=== PATIENT | female | born 1975 | race Caucasian/White ===

== ENCOUNTER 2017-08-14 20:22 | Emergency (ER) | payer MEDICARE, OTHER ==
--- NOTE | 2017-08-14 22:02 | RAD ---
HISTORY: Cough COMPARISONS: November 11, 2005 VIEWS: 5: Frontal dual-energy and lateral views of the chest. FINDINGS: CARDIOMEDIASTINAL SILHOUETTE: The cardiomediastinal silhouette is normal. FREDY: The fredy are normal. PLEURA: The costophrenic angles are sharp. No pleural abnormalities are noted. LUNG PARENCHYMA: The lungs are clear. ABDOMEN: The upper abdomen is clear. There is no subphrenic gas. BONES AND SOFT TISSUES: No bone or soft tissue abnormalities are noted. OTHER: None. IMPRESSION: NO ACTIVE CARDIOPULMONARY DISEASE.
--- NOTE | 2017-08-14 22:03 | RAD ---
HISTORY: Swelling of joints and fingers, immobility of hands COMPARISONS: September 10, 2009 VIEWS: 8, Frontal, lateral, and oblique views of the left hand and of the right hand FINDINGS: Right: BONE DENSITY: Normal. BONES: There is no displaced fracture. There is no appreciable erosion or periosteal reaction. 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 ALIGNMENT: There is no dislocation. The alignment is anatomic. SOFT TISSUES: Unremarkable. Left: BONE DENSITY: Normal. BONES: There is no displaced fracture. There is no appreciable erosion or periosteal reaction. JOINTS: There is no arthropathy. ALIGNMENT: There is no dislocation. The alignment is anatomic. SOFT TISSUES: Unremarkable. OTHER FINDINGS: None. IMPRESSION: NO ACUTE OSSEOUS INJURY BILATERALLY. NO APPRECIABLE EROSION OR PERIOSTEAL REACTION. IF SYMPTOMS PERSIST, RECOMMEND REPEAT IMAGING.
[2017-08-14 22:15] LABS: ABS Basophils 0.1 10^3/ul (0-0.2); ABS Eosinophils 0.1 10^3/ul (0-0.6); ABS Lymphocytes 2.3 10^3/ul (1.0-4.8); ABS Monocytes 0.6 10^3/ul (0-0.8); ABS Nucleated RBC 0 10^3/ul; Eosinophil % 1.5 % (0-6); Hematocrit 42 % (35-47); Hemoglobin 14.4 g/dl (12.0-16.0); Lymphocyte % 28.6 % (25-47); Mean Corpuscular HGB Conc 34 g/dl (31-36); Mean Corpuscular Hemoglobin 31 pg (27-31); Mean Corpuscular Volume 91 fL (80-97); Mean Platelet Volume 7.3 um3 (7.4-10.4); Nucleated Red Blood Cells % 0.1; Platelet Count 217 10^3/ul (150-450); Red Blood Count 4.59 10^6/ul (4.0-5.4); Red Cell Distribution Width 15 % (10.5-15); White Blood Count 8.2 10^3/ul (3.5-10.8)
[2017-08-14 22:34] LABS: EGFR Non-African American 76.1 (>60)
[2017-08-14] MEDS ORDERED: Potassium Chlor TAB* 20 MEQ TAB.ER PO ONE (23:21)
[2017-08-14] MEDS ORDERED: predniSONE TAB* 20 MG PO ONE (23:22)
[2017-08-14 23:55] VITALS: BP 132/87
--- NOTE | 2017-08-15 00:10 | ED ---
Kathy Chester Julia, scribed for Juan Fletcher MD on 08/14/17 at 2104 . Upper Extremity Pain - HPI Summary HPI Summary: This patient is a 42 year old F presenting to [facility] accompanied by her mother with a chief complaint of sudden pain, stiffness, and swelling in her bilateral hands this morning. She has had these symptoms intermittently for the past year , but have significantly worsened today. Patient reports issues with extremity edema at baseline, for which she takes Lasix. She reports previous hypokalemia. She additionally c/o cough, mild wheezing, and sore throat. Patient denies CP. PMHx includes migraines, HTN, depression, anxiety, and opiod addiction. She is currently taking Suboxone. - History of Current Complaint Chief Complaint: EDHypertension Stated Complaint: IMMOBILITY OF HANDS Time Seen by Provider: 08/14/17 20:57 - Allergies/Home Medications Allergies/Adverse Reactions: Allergies Allergy/AdvReac Type Severity Reaction Status Date / Time cephalexin [From Keflex] AdvReac Hives Verified 08/14/17 20:34 Sulfa (Sulfonamide AdvReac Hives Verified 08/14/17 20:34 Antibiotics) Home Medications: Home Medications Buprenorphine/Naloxone SL TAB* [Suboxone 8-2 mg SL TAB*] 8 mg ONE NARE BID 08/14 [History Confirmed 08/14/17] Buspar TAB * 10 mg PO TID 08/14/17 [History Confirmed 08/14/17] Docusate Sodium 300 mg PO DAILY 08/14/17 [History Confirmed 08/14/17] Tiffany 0.35 mg PO QAM 08/14/17 [History Confirmed 08/14/17] Escitalopram Oxalate [Lexapro 10 mg] 15 mg PO DAILY 08/14/17 [History Confirmed 08/14/17] Lasix TAB* 80 mg PO QAM 08/14/17 [History Confirmed 08/14/17] Omeprazole 40 mg PO QAM 08/14/17 [History Confirmed 08/14/17] Prazosin HCl 1 mg PO DAILY 08/14/17 [History Confirmed 08/14/17] Pregabalin [Lyrica] 50 cap PO TID 08/14/17 [History Confirmed 08/14/17] Propranolol HCl ER 180 mg PO QAM 08/14/17 [History Confirmed 08/14/17] Remeron TAB* 7.5 mg PO DAILY 08/14/17 [History Confirmed 08/14/17] Seroquel 100 MG * 100 mg .ROUTE QAM 08/14/17 [History Confirmed 08/14/17] Seroquel 300 MG TAB* 600 mg PO BEDTIME 08/14/17 [History Confirmed 08/14/17] PMH/Surg Hx/FS Hx/Imm Hx Infectious Disease History: No Infectious Disease History: Denies: Traveled Outside the [place] in Last 30 Days - Family History Known Family History: Positive: Other - RA - grandmother - Social History Alcohol Use: None Substance Use Type: Reports: None Smoking Status (MU): Heavy Every Day Tobacco Smoker Review of Systems Positive: Sore Throat Negative: Chest Pain Positive: Cough Positive: Edema - bilateral upper extremity Positive: Other - erythema bilateral upper extremity All Other Systems Reviewed And Are Negative: Yes Physical Exam - Summary Physical Exam Summary: Appearance: Well-appearing, Well-nourished, lying in bed comfortably Skin: Warm, dry, no obvious rash, erythema of bilateral hands and forearms Eyes: sclera anicteric, no conjunctiva pallor ENT: mucous membranes moist, pharynx appears normal Neck: Supple, nontender Respiratory: Clear to auscultation, no signs of respiratory distress Cardiovascular: Normal S1, S2. No murmurs. Normal distal pulses in tibial and radial bilaterally. Abdomen: Soft, nontender, normal active bowel sounds present Musculoskeletal: Strength/ROM Intact swelling of the bilateral hands and wrists Neurological: A&Ox3, awake and alert, mentation is normal, speech is fluent and appropriate Psychiatric: affect is normal, does not appear anxious or depressed Triage Information Reviewed: Yes Vital Signs On Initial Exam: Initial Vitals Temp Pulse Resp BP Pulse Ox 96.0 F 83 20 142/111 92 08/14/17 20:28 08/14/17 20:28 08/14/17 20:28 08/14/17 20:28 08/14/17 20:28 Vital Signs Reviewed: Yes Diagnostics - Vital Signs Vital Signs Temp Pulse Resp BP Pulse Ox 08/14/17 20:28 96.0 F 83 20 142/111 92 - Laboratory Lab Results: Lab Results 08/14/17 08/14/17 Range/Units 21:59 21:59 WBC 8.2 (3.5-10.8) 10^3/ul RBC 4.59 (4.0-5.4) 10^6/ul Hgb 14.4 (12.0-16.0) g/dl Hct 42 (35-47) % MCV 91 (80-97) fL MCH 31 (27-31) pg MCHC 34 (31-36) g/dl RDW 15 (10.5-15) % Plt Count 217 (150-450) 10^3/ul MPV 7.3 L (7.4-10.4) um3 Neut % (Auto) 61.3 (38-83) % Lymph % (Auto) 28.6 (25-47) % [place] % (Auto) 7.7 H (0-7) % Eos % (Auto) 1.5 (0-6) % Baso % (Auto) 0.9 (0-2) % Absolute Neuts (auto) 5.0 (1.5-7.7) 10^3/ul Absolute Lymphs (auto) 2.3 (1.0-4.8) 10^3/ul Absolute Monos (auto) 0.6 (0-0.8) 10^3/ul Absolute Eos (auto) 0.1 (0-0.6) 10^3/ul Absolute Basos (auto) 0.1 (0-0.2) 10^3/ul Absolute Nucleated RBC 0 10^3/ul Nucleated RBC % 0.1 ESR 18 H (0-14) mm/Hr Sodium 137 L (139-145) mmol/L Potassium 2.9 L (3.5-5.0) mmol/L Chloride 95 L (101-111) mmol/L Carbon Dioxide 33 H (22-32) mmol/L Anion Gap 9 (2-11) mmol/L BUN 8 (6-24) mg/dL Creatinine 0.83 (0.51-0.95) mg/dL Est GFR ( Amer) 97.9 (>60) Est GFR (Non-Af Amer) 76.1 (>60) BUN/Creatinine Ratio 9.6 (8-20) Glucose 86 (70-100) mg/dL Calcium 8.4 L (8.6-10.3) mg/dL Total Bilirubin 0.60 (0.2-1.0) mg/dL AST 17 (13-39) U/L ALT 11 (7-52) U/L Alkaline Phosphatase 110 H (34-104) U/L C-Reactive Protein 17.16 H (< 5.00) mg/L Total Protein 6.7 (6.4-8.9) g/dL Albumin 3.8 (3.2-5.2) g/dL Globulin 2.9 (2-4) g/dL Albumin/Globulin Ratio 1.3 (1-3) Rheumatoid Factor < 10 (<15) IU/mL Result Diagrams: 08/14/17 21:59 08/14/17 21:59 Lab Statement: Any lab studies that have been ordered have been reviewed, and results considered in the medical decision making process. - Radiology CXR Radiology Interpretation Completed By: Radiologist - NO ACTIVE CARDIOPULMONARY DISEASE. Dr. Fletcher has reviewed this report. Hand XR Radiology Interpretation Completed By: Radiologist - NO ACUTE OSSEOUS INJURY BILATERALLY. NO APPRECIABLE EROSION OR PERIOSTEAL REACTION. IF SYMPTOMS PERSIST , RECOMMEND REPEAT IMAGING. Dr. Fletcher has reviewed this report. - EKG 2117 Cardiac Rate: NL EKG Rhythm: Sinus Rhythm - at 77 BPM EKG Interpretation: see comparison EKG Comparison: Other - P waves, QRS complex, and T waves are within normal limits, T waves and intervals are normal, no ischemic changes. This is a normal EKG Course/Dx - Course Assessment/Plan: 42 y/o woman with acutely inflamed fingers, symmetric polyarthritis of the fingers. She has had similar problems before. I am concerned she has some type of underlying rheumatologic condition such as RA. Initial screening studies are unremarkable. I am going to try a short course of prednisone, and have asked her to see a leather goods ii assembler for further evaluation. - Diagnoses Differential Diagnosis/HQI/PQRI: Positive: Other - rheumatoid arthritis, viral arthropathy Provider Diagnoses: Polyarthritis Discharge - Sign-Out/Discharge Documenting (check all that apply): Discharge/Admit/Transfer - Discharge Plan Condition: Good Disposition: HOME Prescriptions: predniSONE TAB* [Deltasone TAB*] 40 mg PO DAILY #10 tab Patient Education Materials: Rheumatoid Arthritis (ED) Referrals: No Primary Care Phys,NOPCP [Primary Care Provider] - Additional Instructions: I am not sure what is causing your problem, but have prescribed prednisone which I think may help. Ask your doctor about a referral to a leather goods ii assembler, who would be able to evaluate you and start treatment if something like rheumatoid arthritis is the problem. - Billing Disposition and Condition Condition: GOOD Disposition: HOME The documentation as recorded by the Kathy garcia Julia accurately reflects the service I personally performed and the decisions made by me, Juan Fletcher MD.
== END 2017-08-14 23:52 | disposition home or self-care (01) ==
LOC: ED 20:22
DX: M13.0 Polyarthritis, unspecified (principal); Z72.0 Tobacco use; I10 Essential (primary) hypertension; F32.9 Major depressive disorder, single episode, unspecified; F11.20 Opioid dependence, uncomplicated; R05 Cough
CPT/HCPCS: 36415; 71046; 80053; 85025; 85652; 86140; 86431; 93005; 99283; A9270-GY; J7512

== ENCOUNTER 2019-02-22 22:59 | Emergency (ER) | payer MEDICARE, MEDICAID ==
[2019-02-22 23:51] LABS: ABS Eosinophils 0.2 10^3/ul (0-0.6); ABS Lymphocytes 3.2 10^3/ul (1.0-4.8); ABS Monocytes 0.5 10^3/ul (0-0.8); Eosinophil % 3.3 %; Hematocrit 42 % (35-47); Hemoglobin 14.5 g/dL (12.0-16.0); Lymphocyte % 46.6 %; Mean Corpuscular HGB Conc 34 g/dL (31-36); Mean Corpuscular Hemoglobin 32 pg (27-31); Mean Corpuscular Volume 93 fL (80-97); Mean Platelet Volume 7.3 fL (7.4-10.4); Nucleated Red Blood Cells % 0.2; Platelet Count 208 10^3/uL (150-450); Red Blood Count 4.52 10^6 /uL (3.70-4.87); Red Cell Distribution Width 13 % (10-15); White Blood Count 6.9 10^3/uL (3.5-10.8)
[2019-02-22 23:53] LABS: Urine Appearance Clear; Urine Bilirubin Negative (Negative); Urine Blood 2+ (Negative); Urine Color Yellow; Urine Glucose Negative (Negative); Urine Ketones Negative (Negative); Urine Nitrite Negative (Negative); Urine Protein Negative (Negative); Urine Specific Gravity 1.012 (1.010-1.030); Urine Urobilinogen Negative (Negative)
[2019-02-22 23:54] LABS: Urine Bacteria Absent (Absent); Urine Red Blood Cell Trace(0-2/hpf) (Absent); Urine Squamous Epithelial Cell Present (Absent); Urine White Blood Cell Trace(0-5/hpf) (Absent)
[2019-02-23 00:07] LABS: ALT 18 U/L (7-52); AST 16 U/L (13-39); Albumin 3.9 g/dL (3.2-5.2); Albumin/Globulin Ratio 1.6 (1-3); Alkaline Phosphatase 120 U/L (34-104); Anion Gap 10 mmol/L (2-11); Blood Urea Nitrogen 12 mg/dL (6-24); CO2 Carbon Dioxide 25 mmol/L (22-32); Calcium 9.1 mg/dL (8.6-10.3); Chloride 105 mmol/L (101-111); EGFR Non-African American 72.7 (>60); Globulin 2.4 g/dL (2-4); Glucose 97 mg/dL (70-100); Potassium 3.8 mmol/L (3.5-5.0); Sodium 140 mmol/L (135-145); Total Protein 6.3 g/dL (6.4-8.9)
[2019-02-23 00:15] LABS: HCG Pregnancy < 0.60 mIU/mL
[2019-02-23 00:17] LABS: Urine Benzodiazepine Screen Presumptive Positive (None Detect); Urine Opiates Screen None Detected (None Detect)
--- NOTE | 2019-02-23 00:17 | ED ---
Psychiatric Complaint - HPI Summary HPI Summary: Patient is a 43 y/o F presenting to [facility] with complaints of depression and SI. She states that she has been having SI for the past few days. Patient cites the current holiday season as an aggravating factor. She had threatened suicide to her friend mann and the friend called state troopers to check on her. Patient was subsequently brought to ED for evaluation. Patient denies current plan of SI but states that she has previously attempted to OD on medications years ago. Patient denies recent changes to her medications and states that she is receiving counseling. Patient also states that she has VU and is nauseous. PMHx of migraines, HTN, kidney disease, and GERD is noted. She claims that she consumed two large cans of beer mann and notes that she has been in and out of rehab for alcohol for the past few years. She additionally makes note of Hx of opiates abuse but states that she has been clean after having been on suboxone. No PSHx is noted. Home medications and allergies are reviewed. - History Of Current Complaint Chief Complaint: EDMentalHealth Time Seen by Provider: 02/22/19 23:15 Hx Obtained From: Patient Onset/Duration: Lasting Days, Still Present Timing: Constant Character: Depressed Aggravating Factor(s): Other - holiday season Has Suicidal: Reports: Thoughts, Has Prior Attempt(s). Denies: With A Plan - Allergies/Home Medications Allergies/Adverse Reactions: Allergies Allergy/AdvReac Type Severity Reaction Status Date / Time cephalexin [From Keflex] AdvReac Hives Verified 02/22/19 23:03 Sulfa (Sulfonamide AdvReac Hives Verified 02/22/19 23:03 Antibiotics) Home Medications: Home Medications cloNIDine TAB* [Catapres 0.1 MG TAB*] 0.1 mg PO TID PRN 02/23/19 [History Confirmed 02/23/19] diphenhydrAMINE HCl [Benadryl Allergy] 50 mg PO DAILY PRN 02/23/19 [History Confirmed 02/23/19] PMH/Surg Hx/FS Hx/Imm Hx Cardiovascular History: Reports: Hx Hypertension GI History: Reports: Hx Gastroesophageal Reflux Disease Neurological History: Reports: Hx Migraine Psychiatric History: Reports: Hx Suicide Attempt Infectious Disease History: No Infectious Disease History: Denies: Traveled Outside the [place] in Last 30 Days - Family History Known Family History: Positive: Other - RA - grandmother - Social History Alcohol Use: Daily Substance Use Type: Reports: None Smoking Status (MU): Heavy Every Day Tobacco Smoker Review of Systems Positive: Nausea Positive: Headache Psychological: Other - positive - SI All Other Systems Reviewed And Are Negative: Yes Physical Exam - Summary Physical Exam Summary: General: Well-developed, Obese female. No acute distress. HEENT: Normocephalic, Atraumatic. Eyes: Conjuctiva normal, PERRL. Ears: TMs within normal limits. Nares: (-) discharge, (-) erythema. Oropharynx: Clear, mucous membranes moist, (-) exudates. Neck: Soft, FROM, (-) lymphadenopathy, (-) thyromegaly, (-) JVD. Cardiovascular: Normal sinus rhythm, (-) murmur. Lungs: Clear to auscultation bilaterally (-) wheezes, (-) rales, (-) rhonchi. Abdomen: Soft, non-tender, non-distended, (-) organomegaly, normal bowel sounds. Back: (-) CVA tenderness Extremities: No edema. Skin: Warm, dry, (-) rash. Neuro: Alert and oriented x3, no focal deficits. Psychiatric: Sad affect, patient is slow to respond. Triage Information Reviewed: Yes Vital Signs On Initial Exam: Initial Vitals Temp Pulse Resp BP Pulse Ox 96.3 F 82 18 162/104 98 02/22/19 23:03 02/22/19 23:03 02/22/19 23:03 02/22/19 23:03 02/22/19 23:03 Vital Signs Reviewed: Yes Procedures - Sedation Patient Received Moderate/Deep Sedation with Procedure: No Diagnostics - Vital Signs Vital Signs Temp Pulse Resp BP Pulse Ox 02/22/19 23:03 96.3 F 82 18 162/104 98 - Laboratory Lab Results: Lab Results 02/22/19 02/22/19 02/22/19 Range/Units 23:20 23:43 23:43 WBC 6.9 (3.5-10.8) 10^3/uL RBC 4.52 (3.70-4.87) 10^6 /uL Hgb 14.5 (12.0-16.0) g/dL Hct 42 (35-47) % MCV 93 (80-97) fL MCH 32 H (27-31) pg MCHC 34 (31-36) g/dL RDW 13 (10-15) % Plt Count 208 (150-450) 10^3/uL MPV 7.3 L (7.4-10.4) fL Neut % (Auto) 43.1 % Lymph % (Auto) 46.6 % [place] % (Auto) 6.8 % Eos % (Auto) 3.3 % Baso % (Auto) 0.2 % Absolute Neuts (auto) 3.0 (1.5-7.7) 10^3/ul Absolute Lymphs (auto) 3.2 (1.0-4.8) 10^3/ul Absolute Monos (auto) 0.5 (0-0.8) 10^3/ul Absolute Eos (auto) 0.2 (0-0.6) 10^3/ul Absolute Basos (auto) 0.0 (0-0.2) 10^3/ul Absolute Nucleated RBC 0.0 10^3/ul Nucleated RBC % 0.2 Sodium 140 (135-145) mmol/L Potassium 3.8 (3.5-5.0) mmol/L Chloride 105 (101-111) mmol/L Carbon Dioxide 25 (22-32) mmol/L Anion Gap 10 (2-11) mmol/L BUN 12 (6-24) mg/dL Creatinine 0.86 (0.51-0.95) mg/dL Est GFR ( Amer) 88.0 (>60) Est GFR (Non-Af Amer) 72.7 (>60) BUN/Creatinine Ratio 14.0 (8-20) Glucose 97 (70-100) mg/dL Calcium 9.1 (8.6-10.3) mg/dL Total Bilirubin 0.30 (0.2-1.0) mg/dL AST 16 (13-39) U/L ALT 18 (7-52) U/L Alkaline Phosphatase 120 H (34-104) U/L Total Protein 6.3 L (6.4-8.9) g/dL Albumin 3.9 (3.2-5.2) g/dL Globulin 2.4 (2-4) g/dL Albumin/Globulin Ratio 1.6 (1-3) TSH Pending Beta HCG, Quant Pending Urine Color Yellow Urine Appearance Clear Urine pH 5.0 (5-9) Ur Specific [place] 1.012 (1.010-1.030) Urine Protein Negative (Negative) Urine Ketones Negative (Negative) Urine Blood 2+ A (Negative) Urine Nitrate Negative (Negative) Urine Bilirubin Negative (Negative) Urine Urobilinogen Negative (Negative) Ur Leukocyte Esterase Negative (Negative) Urine WBC (Auto) Trace(0-5/hpf) (Absent) Urine RBC (Auto) Trace(0-2/hpf) (Absent) Ur Squamous Epith Cells Present A (Absent) Urine Bacteria Absent (Absent) Urine Glucose Negative (Negative) Salicylates Pending Acetaminophen Pending Serum Alcohol Pending Result Diagrams: 02/22/19 23:43 02/22/19 23:43 Lab Statement: Any lab studies that have been ordered have been reviewed, and results considered in the medical decision making process. Course/Dx - Course Course Of Treatment: Patient is a 43 y/o F presenting to [facility] with complaints of SI. She is calm and cooperative at this time. Workup was negative except for alcohol and benzodiazepines. Patient was medically cleared for MHE. MHE was completed. Patient's case was reviewed by Dr. Khan, patient will be discharged. Patient to return to her rehab clinic and follow up with [facility]. - Differential Dx/Clinical Impression Provider Diagnosis: Depression, Substance abuse - Physician Notifications Discussed Care Of Patient With: Brandy Khan Time Discussed With Above Provider: 05:28 Instructed by Provider To: Other - Patient's case was reviewed by Dr. Khan, patient will be discharged. Patient to return to her rehab clinic and follow up with [facility]. Discharge ED - Sign-Out/Discharge Documenting (check all that apply): Patient Departure - discharge - Discharge Plan Condition: Stable Disposition: HOME Patient Education Materials: Depression (ED), Abuse of Alcohol (ED) Referrals: No Primary Care Phys,NOPCP [Primary Care Provider] - Additional Instructions: Per completion of a mental health evaluation, you are cleared for release and do not require inpatient psychiatric hospitalization at this time. Please go to nearest emergency room or call 911 if safety concerns arise or condition worsens. Important Phone Numbers: [facility] [phone] Suicide Prevention and Crisis Services........................ [phone] National Suicide Prevention Lifeline............................ 056-800-XFJB (1215) [facility]....................... [phone] Alcoholics Anonymous............................................... [facility].............. [phone] [facility] Police.............................................. Substance Abuse Treatment Programs [facility] [place] [facility] - Billing Disposition and Condition Condition: STABLE Disposition: Home - Attestation Statements Document Initiated by Rory: Yes Documenting Scribe: HARRY PHAM Provider For Whom Rory is Documenting (Include Credential): COBY CADENA MD Scribe Attestation: I, HARRY PAHM, scribed for CBOY CADENA MD on 02/26/19 at 0245. Scribe Documentation Reviewed: Yes Provider Attestation: The documentation as recorded by the HARRY garcia accurately reflects the service I personally performed and the decisions made by me, COBY CADENA MD Status of Scribe Document: Viewed
[2019-02-23 00:27] LABS: Acetaminophen < 15 mcg/mL; Alcohol 131 mg/dL (<10); Salicylate < 2.50 mg/dL (<30)
[2019-02-23 00:41] LABS: TSH (Thyroid Stimulating Horm) 7.78 mcIU/mL (0.34-5.60)
[2019-02-23] MEDS ORDERED: Acetaminophen TAB* 325 MG PO ONE (00:44)
[2019-02-23 05:47] VITALS: BP 132/87
== END 2019-02-23 05:46 | disposition home or self-care (01) ==
LOC: ED 22:59
DX: F32.9 Major depressive disorder, single episode, unspecified (principal); F19.10 Other psychoactive substance abuse, uncomplicated; I10 Essential (primary) hypertension; K21.9 Gastro-esophageal reflux disease without esophagitis; F17.200 Nicotine dependence, unspecified, uncomplicated; Z79.899 Other long term (current) drug therapy; Z88.1 Allergy status to other antibiotic agents; Z88.2 Allergy status to sulfonamides
CPT/HCPCS: 36415; 80053; 80307; 80320; 80329; 81003; 81015; 84443; 84702; 85025; 87086; 99285; A9270-GY; G0480

== ENCOUNTER 2021-06-02 08:00 | Inpatient (IN) ==
[~2021-06-02 08:00] MED LIST: Buffered Lidocaine 1% SYRIN 1 ml INTRADERM ONE; DiMENhydriNATE IV 50 mg/ml 1 ml VIAL IV PUSH ONE; HYDROmorphone 1 MG/1 ML SYRINGE IV PRN; Lactated Ringers 1000 ml BAG 1,000 ML IV SCH; Naloxone 0.4 mg VIAL 0.4 mg/ml 1 ml VIAL IV PRN; Ondansetron 4 mg VIAL 2 MG/ML 2 ml VIAL IV PRN; fentaNYL 100 mcg/2 ml 50 MCG/ML VIAL IV PRN
[2021-06-02] MEDS ORDERED: Propofol 10 MG/ML 20 ML BTL ONE ×2 (08:27→11:22)
[2021-06-02] MEDS ORDERED: Lidocaine 2% PF 5 ML VIAL ONE (08:27)
[2021-06-02] MEDS ORDERED: Dexamethasone IV 4 MG/ML VIAL 1 ml VIAL ONE (08:27)
[2021-06-02] MEDS ORDERED: Rocuronium 50 mg VIAL 10 mg/ml 5 ml VIAL (50 mg) ONE ×2 (08:27→11:20)
[2021-06-02] MEDS ORDERED: fentaNYL 100 mcg/2 ml 50 MCG/ML VIAL ONE ×2 (08:28→13:28)
[2021-06-02] MEDS ORDERED: Midazolam 2 mg/2 ml VIAL 1 mg/ml 2 ml VIAL (2 mg) ONE (08:28)
[2021-06-02] MEDS ORDERED: Scopolamine 1 mg/72hr PATCH ONE (08:31)
[2021-06-02] MEDS ORDERED: DiMENhydriNATE IV 50 mg/ml 1 ml VIAL ONE (08:32)
[2021-06-02] MEDS ORDERED: Heparin 5000 UNITS/ML 1 mL VIAL ONE (08:32)
[2021-06-02] MEDS ORDERED: Clindamycin 900 MG/D5W BAG 900 MG/50 ML BAG IVPB ONE (08:32)
[2021-06-02] MEDS ORDERED: Phenylephrine 40 mcg/mL 10mL (400mcg) SYRINGE ONE ×2 (09:14→11:13)
[2021-06-02] MEDS ORDERED: Lidocaine 1% w EPI 1:100,000 MDV 20 ML VIAL ONE (09:46)
[2021-06-02] MEDS ORDERED: Methylene Blue 0.5 % 50 MG/10 ML AMP IV ONE (09:46)
[2021-06-02] MEDS ORDERED: Bupivacaine 0.5% SDV PF 30ML VIAL ONE (09:47)
[2021-06-02] MEDS ORDERED: Acetaminophen IV 1 GM/100ML 100 ML IV ONE (11:13)
[2021-06-02] MEDS ORDERED: Sugammadex 500 MG/5 ML 5 ml VIAL IV PUSH ONE (11:27)
[2021-06-02] MEDS ORDERED: Ondansetron 4 mg VIAL 2 MG/ML 2 ml VIAL ONE ×2 (11:27→13:28)
[2021-06-02] MEDS ORDERED: Acetaminophen IV 1 GM/100ML 100 ML IV PRN (12:56)
[2021-06-02] MEDS ORDERED: HYDROcodone/ACET. 7.5/325 LIQ 15 ML UDC PO PRN (12:56)
[2021-06-02] MEDS ORDERED: diPHENhydraMINE IV 50 MG/ML 1 ml VIAL (BENADRYL) SLOW PUSH PRN (12:56)
[2021-06-02] MEDS ORDERED: HYDROmorphone 1 MG/1 ML SYRINGE IV SLOW PU PRN (12:56)
[2021-06-02] MEDS ORDERED: Albuterol HFA INHALER 8 gm MDI INH PRN (13:04)
[2021-06-02] MEDS: Lactated Ringers 1000 ml BAG 1,000 ML IV SCH (15:20)
[2021-06-02 15:24] LABS: ABS Basophils 0.1 10^3/ul (0-0.2); ABS Lymphocytes 1.3 10^3/ul (1.0-4.8); ABS Monocytes 0.3 10^3/ul (0-0.8); ABS Neutrophils 9.1 10^3/ul (1.5-7.7); Eosinophil % 0.4 %; Hematocrit 42 % (35-47); Hemoglobin 14.5 g/dL (12.0-16.0); Mean Corpuscular HGB Conc 34 g/dL (31-36); Mean Corpuscular Hemoglobin 32 pg (27-31); Mean Corpuscular Volume 92 fL (80-97); Mean Platelet Volume 8.8 fL (7.4-10.4); Platelet Count 205 10^3/uL (150-450); Red Blood Count 4.61 10^6 /uL (3.70-4.87); Red Cell Distribution Width 13 % (10-15); White Blood Count 10.8 10^3/uL (3.5-10.8)
[2021-06-02 15:45] LABS: Calcium 9.2 mg/dL (8.6-10.3); Magnesium 1.9 mg/dL (1.9-2.7)
[2021-06-02] MEDS: Nicotine PATCH 14 MG/24 HR PATCH TRANSDERM SCH (15:45)
[2021-06-02] MEDS: HYDROmorphone 0.5 MG/0.5 ML SYRINGE IV SLOW PU PRN ×2 (17:58→22:53)
[2021-06-02] MEDS: Famotidine IV 10 MG/ML 2 ml VIAL (20 mg) IV SLOW PU SCH (20:51)
[2021-06-02] MEDS: Ondansetron 4 mg VIAL 2 MG/ML 2 ml VIAL IV PRN (22:39)
[2021-06-02] MEDS: Heparin 5000 UNITS/ML 1 mL VIAL SUBCUT SCH (22:45)
[2021-06-03] MEDS: Lactated Ringers 1000 ml BAG 1,000 ML IV SCH ×2 (01:22→08:00)
[2021-06-03] MEDS: HYDROmorphone 0.5 MG/0.5 ML SYRINGE IV SLOW PU PRN ×2 (04:14→08:02)
[2021-06-03] MEDS: Heparin 5000 UNITS/ML 1 mL VIAL SUBCUT SCH ×2 (05:37→13:36)
[2021-06-03] MEDS ORDERED: Mometasone/Formoter 200/5 MDI INH SCH (07:00)
[2021-06-03] MEDS: Famotidine IV 10 MG/ML 2 ml VIAL (20 mg) IV SLOW PU SCH (08:01)
[2021-06-03] MEDS ORDERED: Benzocaine/Menthol LOZ MT PRN (08:21)
[2021-06-03] MEDS: Nicotine PATCH 14 MG/24 HR PATCH TRANSDERM SCH (08:29)
[2021-06-03] MEDS ORDERED: SPIRIVA Respimat (tiotropium) 2.5 mcg/inh Inhaler INH SCH (09:00)
[2021-06-03] MEDS ORDERED: NORETHINDRONE 0.35 MG PO SCH (09:00)
[2021-06-03 10:57] VITALS: BP 126/77
[2021-06-03] MEDS: Ondansetron 4 mg VIAL 2 MG/ML 2 ml VIAL IV PRN (10:57)
[2021-06-03] MEDS ORDERED: D5W 1/2 NS KCl 20 meq 1000 ml 1,000 ML IV SCH (13:00)
== END 2021-06-03 15:40 | disposition home or self-care (01) | DRG 621 ==
LOC: AA 08:00 → SSU 15:11
PROVIDERS: ADMIT Surgery; ATTEND Surgery

== ENCOUNTER 2021-06-25 14:46 | Inpatient (IN) ==
[2021-06-25] MEDS ORDERED: Thiamine 100 MG/ML 2 ml VIAL 100 MG, Folic Acid IV 1 MG, Multiple Vitamin IV ADULT 10 M... IV ONE (17:57)
[2021-06-25] MEDS ORDERED: Vancomycin 1,000 MG in NS 0.9% 250 ml 250 ML IVPB ONE (20:39)
[2021-06-25 20:51] LABS: ALT 41 U/L (7-52); Albumin 3.1 g/dL (3.2-5.2); Alkaline Phosphatase 162 U/L (35-149); Blood Urea Nitrogen 16 mg/dL (6-24); CO2 Carbon Dioxide 28 mmol/L (22-32); Calcium 8.8 mg/dL (8.6-10.3); Chloride 94 mmol/L (101-111); Globulin 3.2 g/dL (2-4); Glucose 125 mg/dL (70-100); Sodium 134 mmol/L (135-145); Total Protein 6.3 g/dL (6.4-8.9); eGFR CKD-EPI 100.6 (>60)
[2021-06-25 20:58] LABS: Anion Gap 12 mmol/L (2-11)
[2021-06-25] MEDS ORDERED: Vancomycin per Pharmacy 1 EA NOTE FOLLOW UP SCH (21:00)
[2021-06-25] MEDS ORDERED: Vancomycin 2,000 MG in NS 0.9% 500 ml BAG 500 ML IVPB ONE (21:15)
[2021-06-25] MEDS ORDERED: Propofol 10 MG/ML 20 ML BTL IV PUSH ONE (21:15)
[2021-06-25 21:34] LABS: ABS Basophils 0.1 10^3/ul (0-0.2); ABS Eosinophils 0.3 10^3/ul (0-0.6); ABS Lymphocytes 2.3 10^3/ul (1.0-4.8); ABS Monocytes 1.4 10^3/ul (0-0.8); ABS Neutrophils 12.4 10^3/ul (1.5-7.7); Eosinophil % 1.6 %; Hematocrit 37 % (35-47); Hemoglobin 12.4 g/dL (12.0-16.0); Lymphocyte % 14.1 %; Mean Corpuscular HGB Conc 34 g/dL (31-36); Mean Corpuscular Hemoglobin 31 pg (27-31); Mean Corpuscular Volume 92 fL (80-97); Mean Platelet Volume 8.4 fL (7.4-10.4); Platelet Count 323 10^3/uL (150-450); Red Blood Count 4.02 10^6 /uL (3.70-4.87); Red Cell Distribution Width 14 % (10-15); White Blood Count 16.5 10^3/uL (3.5-10.8)
[2021-06-25] MEDS ORDERED: Iodixanol (CONTRAST) 320 MG/ML 100 ML SDV IV ONE (22:12)
[2021-06-25 23:55] LABS: Potassium Redraw 2.8 mmol/L (3.5-5.0)
[2021-06-26] MEDS: Lactated Ringers 1000 ml BAG 1,000 ML IV SCH ×2 (02:25→16:06)
[2021-06-26] MEDS ORDERED: Albuterol HFA INHALER 8 gm MDI INH PRN (08:52)
[2021-06-26] MEDS: Vancomycin 1,500 MG in NS 0.9% 250 ml 250 ML IVPB SCH ×2 (10:42→22:07)
[2021-06-26] MEDS: Buprenorp/Nalox 8-2 MG FILM SL FILM SCH (10:46)
[2021-06-26] MEDS: Potassium Chloride LIQUID 20 MEQ/15 ML LIQUID PO SCH ×2 (10:47→22:02)
[2021-06-26] MEDS: Mometasone/Formoter 200/5 MDI INH SCH ×2 (11:48→20:49)
[2021-06-26] MEDS: HYDROmorphone 1 MG/1 ML SYRINGE IV SLOW PU PRN (15:58)
[2021-06-27] MEDS: Lactated Ringers 1000 ml BAG 1,000 ML IV SCH ×3 (01:26→22:12)
[2021-06-27 06:34] LABS: ABS Basophils 0.1 10^3/ul (0-0.2); ABS Eosinophils 0.3 10^3/ul (0-0.6); ABS Lymphocytes 1.3 10^3/ul (1.0-4.8); ABS Monocytes 0.8 10^3/ul (0-0.8); Eosinophil % 3.7 %; Hematocrit 32 % (35-47); Hemoglobin 10.9 g/dL (12.0-16.0); Lymphocyte % 15.8 %; Mean Corpuscular HGB Conc 34 g/dL (31-36); Mean Corpuscular Hemoglobin 31 pg (27-31); Mean Corpuscular Volume 91 fL (80-97); Mean Platelet Volume 7.9 fL (7.4-10.4); Platelet Count 335 10^3/uL (150-450); Red Blood Count 3.53 10^6 /uL (3.70-4.87); Red Cell Distribution Width 15 % (10-15); White Blood Count 8.5 10^3/uL (3.5-10.8)
[2021-06-27 07:01] LABS: Calcium 8.5 mg/dL (8.6-10.3); Potassium 3.6 mmol/L (3.5-5.0); eGFR CKD-EPI 111.7 (>60)
[2021-06-27] MEDS: Mometasone/Formoter 200/5 MDI INH SCH ×2 (08:38→19:46)
[2021-06-27] MEDS: Buprenorp/Nalox 8-2 MG FILM SL FILM SCH (09:05)
[2021-06-27] MEDS: Potassium Chloride LIQUID 20 MEQ/15 ML LIQUID PO SCH ×2 (09:06→22:00)
[2021-06-27] MEDS ORDERED: Vancomycin Trough Check NOTE FOLLOW UP ONE (10:00)
[2021-06-27 11:25] LABS: Vancomycin Trough 10.8 mcg/mL; eGFR CKD-EPI 112.1 (>60)
[2021-06-27] MEDS: Vancomycin 1,500 MG in NS 0.9% 250 ml 250 ML IVPB SCH ×2 (11:36→23:00)
[2021-06-27] MEDS: HYDROmorphone 0.5 MG/0.5 ML SYRINGE IV SLOW PU PRN ×2 (12:58→17:30)
[2021-06-27] MEDS: HYDROmorphone 1 MG/1 ML SYRINGE IV SLOW PU PRN (22:12)
[2021-06-28] MEDS: Mometasone/Formoter 200/5 MDI INH SCH ×2 (08:54→20:27)
[2021-06-28] MEDS: Potassium Chloride LIQUID 20 MEQ/15 ML LIQUID PO SCH ×2 (09:04→21:51)
[2021-06-28] MEDS: Buprenorp/Nalox 8-2 MG FILM SL FILM SCH (09:05)
[2021-06-28] MEDS: Lactated Ringers 1000 ml BAG 1,000 ML IV SCH (10:29)
[2021-06-28] MEDS: Vancomycin 1,500 MG in NS 0.9% 250 ml 250 ML IVPB SCH ×2 (10:29→22:41)
[2021-06-28] MEDS: Heparin 5000 UNITS/ML 1 mL VIAL SUBCUT SCH ×2 (14:34→21:51)
[2021-06-28] MEDS: HYDROmorphone 0.5 MG/0.5 ML SYRINGE IV SLOW PU PRN (14:35)
[2021-06-29] MEDS: Heparin 5000 UNITS/ML 1 mL VIAL SUBCUT SCH (05:39)
[2021-06-29] MEDS: Potassium Chloride LIQUID 20 MEQ/15 ML LIQUID PO SCH (08:11)
[2021-06-29] MEDS: Buprenorp/Nalox 8-2 MG FILM SL FILM SCH (08:18)
[2021-06-29] MEDS: Mometasone/Formoter 200/5 MDI INH SCH (09:22)
[2021-06-29 11:20] VITALS: BP 138/93
[2021-06-29] MEDS: Vancomycin 1,500 MG in NS 0.9% 250 ml 250 ML IVPB SCH (11:28)
== END 2021-06-29 12:40 | disposition home or self-care (01) | DRG 394 ==
LOC: ED 14:46 → EDHOLD 14:46 → SSU 06-26 04:39
PROVIDERS: ADMIT Surgery; ATTEND Surgery

== ENCOUNTER 2022-01-21 13:23 | Inpatient (IN) ==
[2022-01-21] MEDS ORDERED: Ondansetron ODT 4 mg TAB 4 MG TAB PO ONE (16:15)
[2022-01-21 16:43] LABS: ABS Basophils 0.1 10^3/ul (0-0.2); ABS Eosinophils 0.1 10^3/ul (0-0.6); ABS Lymphocytes 2.1 10^3/ul (1.0-4.8); ABS Monocytes 0.5 10^3/ul (0-0.8); ABS Neutrophils 6.2 10^3/ul (1.5-7.7); Eosinophil % 0.8 %; Hematocrit 54 % (35-47); Hemoglobin 18.8 g/dL (12.0-16.0); Mean Corpuscular HGB Conc 35 g/dL (31-36); Mean Corpuscular Hemoglobin 32 pg (27-31); Mean Corpuscular Volume 90 fL (80-97); Mean Platelet Volume 8.9 fL (7.4-10.4); Nucleated Red Blood Cells % 0.2; Platelet Count 269 10^3/uL (150-450); Red Blood Count 5.92 10^6 /uL (3.70-4.87); Red Cell Distribution Width 13 % (10-15)
[2022-01-21 17:16] LABS: Albumin 4.3 g/dL (3.2-5.2); Albumin/Globulin Ratio 1.6 (1-3); C Reactive Protein 5.03 mg/L (<8.01); Calcium 10.2 mg/dL (8.6-10.3); Globulin 2.7 g/dL (2-4); Potassium 3.1 mmol/L (3.5-5.0); Total Bilirubin 0.6 mg/dL (0.2-1.0); eGFR CKD-EPI 67.2 (>60)
[2022-01-21] MEDS ORDERED: Metoclopramide 5 MG/ML VIAL (10 mg) IV ONE (17:37)
[2022-01-21] MEDS ORDERED: Lactated Ringers 1000 ml BAG 1,000 ML IV ONE ×2 (17:37)
[2022-01-21] MEDS ORDERED: Thiamine 100 MG/ML 2 ml VIAL 100 MG, Folic Acid IV 1 MG, Multiple Vitamin IV ADULT 10 M... IV ONE (18:30)
[2022-01-21 18:33] LABS: Urine Appearance Cloudy; Urine Bilirubin Negative (Negative); Urine Blood 1+ (Negative); Urine Color Yellow; Urine Glucose Negative (Negative); Urine Ketones Negative (Negative); Urine Nitrite Negative (Negative); Urine Protein 1+(30 mg/dL) (Negative); Urine Specific Gravity 1.027 (1.002-1.030); Urine Urobilinogen Negative (Negative)
[2022-01-21 18:49] LABS: Urine Bacteria Absent (Absent); Urine Red Blood Cell 1+(3-5/hpf) (Absent); Urine Squamous Epithelial Cell Present (Absent); Urine White Blood Cell Trace(0-5/hpf) (Absent)
[2022-01-21] MEDS ORDERED: Acetaminophen IV 1 GM/100ML 1,000 MG/100 ML BAG IV ONE (18:52)
[2022-01-21] MEDS ORDERED: Iodixanol (CONTRAST) 320 MG/ML 100 ML SDV IV ONE (19:18)
[2022-01-22] MEDS ORDERED: Morphine 4 MG/ML VIAL (1 ml) IV ONE (01:01)
[2022-01-22] MEDS ORDERED: Ondansetron 4 mg VIAL 2 MG/ML 2 ml VIAL IV ONE (02:24)
[2022-01-22] MEDS ORDERED: Albuterol HFA INHALER 8 gm MDI INH PRN (04:47)
[2022-01-22] MEDS: Enoxaparin 40 MG/0.4 ML SYR SUBCUT SCH (05:46)
[2022-01-22] MEDS: Ondansetron 4 mg VIAL 2 MG/ML 2 ml VIAL IV PRN ×2 (06:37→17:09)
[2022-01-22] MEDS: Nicotine PATCH 14 MG/24 HR PATCH TRANSDERM SCH (08:22)
[2022-01-22] MEDS: Buprenorp/Nalox 8-2 MG FILM SL FILM SCH (08:44)
[2022-01-22] MEDS ORDERED: NORETHINDRONE 0.35 MG PO SCH (09:00)
[2022-01-22] MEDS ORDERED: Pantoprazole VIAL 40 MG VIAL IV SCH (09:00)
[2022-01-22] MEDS ORDERED: Acetaminophen IV 1 GM/100ML 1,000 MG/100 ML BAG IV PRN (10:00)
[2022-01-22] MEDS ORDERED: Lorazepam PYXIS KEY PRN (10:16)
[2022-01-22 12:23] LABS: % Iron Saturation 79 % (15-55); Iron 202 ug/dL (50-212); Total Iron Binding Capacity 256 mcg/dL (250-450); Transferrin 183 mg/dL (203-362); Unsaturated Iron Binding 54 ug/dL
[2022-01-22] MEDS: Pantoprazole 80 mg in NS BAG 80 MG/250 ML BAG IV SCH (12:25)
[2022-01-22 12:47] LABS: Folate > 20.00 ng/mL (5.90-24.80)
[2022-01-22 12:48] LABS: Vitamin B12 698 pg/mL (180-914)
[2022-01-22 12:51] LABS: Vitamin D Total 25(OH) 29.2 ng/mL (20-50)
[2022-01-22] MEDS: D5W NS 0.9% 20Meq KCL 1000 ml 1,000 ML IV SCH (12:53)
[2022-01-22 14:51] LABS: Anion Gap 9 mmol/L (2-11); Blood Urea Nitrogen 8 mg/dL (6-24); CO2 Carbon Dioxide 29 mmol/L (22-32); Calcium 9.2 mg/dL (8.6-10.3); Chloride 101 mmol/L (101-111); Glucose 76 mg/dL (70-100); Potassium 2.9 mmol/L (3.5-5.0); Sodium 139 mmol/L (135-145); eGFR CKD-EPI 75.8 (>60)
[2022-01-22] MEDS: KCL 20 MEQ/100 ML IVPREMIX 20 MEQ/100 ML BAG IV SCH ×2 (16:01→19:14)
[2022-01-22] MEDS: LORazepam 2 mg VIAL 1 ml IV PUSH PRN (17:08)
[2022-01-22] MEDS: HYDROmorphone 0.5 MG/0.5 ML SYRINGE IV PRN (19:13)
[2022-01-22 23:45] LABS: ABS Eosinophils 0.2 10^3/ul (0-0.6); ABS Lymphocytes 2.7 10^3/ul (1.0-4.8); ABS Monocytes 0.6 10^3/ul (0-0.8); ABS Neutrophils 2.9 10^3/ul (1.5-7.7); Eosinophil % 3.9 %; Hematocrit 48 % (35-47); Hemoglobin 16.2 g/dL (12.0-16.0); Lymphocyte % 41.6 %; Mean Corpuscular HGB Conc 34 g/dL (31-36); Mean Corpuscular Hemoglobin 31 pg (27-31); Mean Corpuscular Volume 91 fL (80-97); Mean Platelet Volume 9.2 fL (7.4-10.4); Nucleated Red Blood Cells % 0.1; Platelet Count 234 10^3/uL (150-450); Red Blood Count 5.26 10^6 /uL (3.70-4.87); Red Cell Distribution Width 13 % (10-15); White Blood Count 6.4 10^3/uL (3.5-10.8)
[2022-01-23 00:02] LABS: Calcium 9.7 mg/dL (8.6-10.3); Potassium 3.8 mmol/L (3.5-5.0); eGFR CKD-EPI 66.4 (>60)
[2022-01-23] MEDS: KCL 20 MEQ/100 ML IVPREMIX 20 MEQ/100 ML BAG IV SCH (00:45)
[2022-01-23] MEDS: Pantoprazole 80 mg in NS BAG 80 MG/250 ML BAG IV SCH ×2 (00:45→11:36)
[2022-01-23] MEDS: D5W NS 0.9% 20Meq KCL 1000 ml 1,000 ML IV SCH ×2 (02:09→16:44)
[2022-01-23] MEDS: Enoxaparin 40 MG/0.4 ML SYR SUBCUT SCH (05:33)
[2022-01-23] MEDS: HYDROmorphone 0.5 MG/0.5 ML SYRINGE IV PRN (05:56)
[2022-01-23] MEDS: Ondansetron 4 mg VIAL 2 MG/ML 2 ml VIAL IV PRN ×3 (05:56→19:48)
[2022-01-23 06:18] LABS: ABS Eosinophils 0.3 10^3/ul (0-0.6); ABS Lymphocytes 2.2 10^3/ul (1.0-4.8); ABS Monocytes 0.6 10^3/ul (0-0.8); ABS Neutrophils 2.1 10^3/ul (1.5-7.7); Eosinophil % 4.9 %; Hematocrit 46 % (35-47); Hemoglobin 15.4 g/dL (12.0-16.0); Lymphocyte % 43.5 %; Mean Corpuscular HGB Conc 34 g/dL (31-36); Mean Corpuscular Hemoglobin 31 pg (27-31); Mean Corpuscular Volume 92 fL (80-97); Mean Platelet Volume 9.3 fL (7.4-10.4); Nucleated Red Blood Cells % 0.1; Platelet Count 206 10^3/uL (150-450); Red Blood Count 4.94 10^6 /uL (3.70-4.87); Red Cell Distribution Width 13 % (10-15); White Blood Count 5.1 10^3/uL (3.5-10.8)
[2022-01-23 06:45] LABS: Magnesium 1.8 mg/dL (1.9-2.7); Potassium 4.1 mmol/L (3.5-5.0); eGFR CKD-EPI 79.8 (>60)
[2022-01-23] MEDS ORDERED: Magnesium Sulfate 2 gm BAG 2 GM/50 ML BAG IVPB ONE (08:19)
[2022-01-23] MEDS: Nicotine PATCH 14 MG/24 HR PATCH TRANSDERM SCH (08:23)
[2022-01-23] MEDS: LORazepam 2 mg VIAL 1 ml IV PUSH PRN ×3 (08:25→23:42)
[2022-01-23] MEDS ORDERED: Midazolam 5 mg/5 ml VIAL 1 mg/ml 5 ml VIAL (5 mg) ONE (09:15)
[2022-01-23] MEDS ORDERED: fentaNYL 100 mcg/2 ml 50 MCG/ML VIAL ONE (09:16)
[2022-01-23] MEDS: Buprenorp/Nalox 8-2 MG FILM SL FILM SCH (10:56)
[2022-01-23] MEDS: Pantoprazole VIAL 40 MG VIAL IV SCH (21:50)
[2022-01-24] MEDS: Ondansetron 4 mg VIAL 2 MG/ML 2 ml VIAL IV PRN ×6 (01:25→23:37)
[2022-01-24] MEDS: D5W NS 0.9% 20Meq KCL 1000 ml 1,000 ML IV SCH ×3 (03:43→22:28)
[2022-01-24] MEDS: Enoxaparin 40 MG/0.4 ML SYR SUBCUT SCH (05:39)
[2022-01-24] MEDS: Pantoprazole VIAL 40 MG VIAL IV SCH ×2 (09:00→22:59)
[2022-01-24] MEDS ORDERED: Influenza vaccine *QUAD* *2022-23* 0.5 ML SYRINGE IM ONE (09:00)
[2022-01-24] MEDS: Nicotine PATCH 14 MG/24 HR PATCH TRANSDERM SCH (09:00)
[2022-01-24] MEDS: Buprenorp/Nalox 8-2 MG FILM SL FILM SCH (09:25)
[2022-01-24 09:37] LABS: Calcium 8.8 mg/dL (8.6-10.3); Magnesium 1.9 mg/dL (1.9-2.7); Potassium 3.8 mmol/L (3.5-5.0); eGFR CKD-EPI 97.5 (>60)
[2022-01-24] MEDS ORDERED: Magnesium Sulfate IV 1GM/100ML 1 GM/100 ML BAG IV ONE (10:57)
[2022-01-24] MEDS: Sucralfate 1 gm SUSP 1 GM/10 ML UDC PO SCH ×3 (12:09→23:21)
[2022-01-24] MEDS: HYDROmorphone 1 MG/1 ML SYRINGE IV SLOW PU PRN ×3 (12:11→20:51)
[2022-01-24] MEDS: LORazepam 2 mg VIAL 1 ml IV PUSH PRN (19:39)
[2022-01-25] MEDS: Enoxaparin 40 MG/0.4 ML SYR SUBCUT SCH (05:00)
[2022-01-25] MEDS: D5W NS 0.9% 20Meq KCL 1000 ml 1,000 ML IV SCH (09:01)
[2022-01-25] MEDS: HYDROmorphone 1 MG/1 ML SYRINGE IV SLOW PU PRN ×4 (10:15→23:01)
[2022-01-25] MEDS: Ondansetron 4 mg VIAL 2 MG/ML 2 ml VIAL IV PRN ×4 (10:15→23:00)
[2022-01-25] MEDS: Pantoprazole VIAL 40 MG VIAL IV SCH ×2 (10:27→21:45)
[2022-01-25] MEDS: Nicotine PATCH 14 MG/24 HR PATCH TRANSDERM SCH (10:28)
[2022-01-25] MEDS: Sucralfate 1 gm SUSP 1 GM/10 ML UDC PO SCH ×4 (10:28→21:45)
[2022-01-25] MEDS: Buprenorp/Nalox 8-2 MG FILM SL FILM SCH (10:28)
[2022-01-25 12:09] LABS: Vitamin A, S 38.9 mcg/dL (32.5-78.0)
[2022-01-25] MEDS ORDERED: Thiamine 100 MG/ML 2 ml VIAL 100 MG, Folic Acid IV 1 MG, Multiple Vitamin IV ADULT 10 M... IV ONE (12:30)
[2022-01-25] MEDS: LORazepam 2 mg VIAL 1 ml IV PUSH PRN (17:21)
[2022-01-26] MEDS: Enoxaparin 40 MG/0.4 ML SYR SUBCUT SCH (04:33)
[2022-01-26] MEDS: HYDROmorphone 1 MG/1 ML SYRINGE IV SLOW PU PRN ×2 (04:33→09:04)
[2022-01-26] MEDS: Ondansetron 4 mg VIAL 2 MG/ML 2 ml VIAL IV PRN ×2 (04:33→09:04)
[2022-01-26] MEDS: Pantoprazole VIAL 40 MG VIAL IV SCH ×2 (09:00→21:28)
[2022-01-26] MEDS: Nicotine PATCH 14 MG/24 HR PATCH TRANSDERM SCH (09:03)
[2022-01-26] MEDS: Sucralfate 1 gm SUSP 1 GM/10 ML UDC PO SCH ×4 (10:05→22:53)
[2022-01-26] MEDS: Buprenorp/Nalox 8-2 MG FILM SL FILM SCH (12:12)
[2022-01-26] MEDS ORDERED: HYDROmorphone 1 MG/1 ML SYRINGE IV SLOW PU PRN (12:17)
[2022-01-26] MEDS: Acetaminophen IV 1 GM/100ML 1,000 MG/100 ML BAG IV SCH ×2 (13:23→18:02)
[2022-01-26] MEDS ORDERED: Metoclopramide 5 MG/ML VIAL (10 mg) IV PRN (14:05)
[2022-01-27] MEDS: Acetaminophen IV 1 GM/100ML 1,000 MG/100 ML BAG IV SCH ×2 (00:27→06:13)
[2022-01-27] MEDS: Enoxaparin 40 MG/0.4 ML SYR SUBCUT SCH (05:07)
[2022-01-27] MEDS: Nicotine PATCH 14 MG/24 HR PATCH TRANSDERM SCH (09:03)
[2022-01-27] MEDS: Buprenorp/Nalox 8-2 MG FILM SL FILM SCH (09:05)
[2022-01-27] MEDS: Sucralfate 1 gm SUSP 1 GM/10 ML UDC PO SCH (09:06)
[2022-01-27] MEDS: Pantoprazole VIAL 40 MG VIAL IV SCH (09:06)
[2022-01-27 11:40] VITALS: BP 127/79
== END 2022-01-27 12:35 | disposition home or self-care (01) | DRG 382 ==
LOC: ED 13:23 → EDHOLD 01-22 04:43 → SUATTDRO 01-22 04:43 → SSU 01-22 11:22 → MED 01-24 19:59
PROVIDERS: ADMIT Student in an Organized Health Care Education/Training Program; ATTEND Hospitalist

== ENCOUNTER 2022-02-09 12:14 | Inpatient (IN) ==
[2022-02-09 16:04] LABS: ABS Basophils 0.1 10^3/ul (0-0.2); ABS Eosinophils 0.1 10^3/ul (0-0.6); ABS Lymphocytes 2.4 10^3/ul (1.0-4.8); ABS Monocytes 0.5 10^3/ul (0-0.8); ABS Neutrophils 5.1 10^3/ul (1.5-7.7); Eosinophil % 1.6 %; Hematocrit 47 % (35-47); Hemoglobin 16.1 g/dL (12.0-16.0); Mean Corpuscular HGB Conc 35 g/dL (31-36); Mean Corpuscular Hemoglobin 31 pg (27-31); Mean Corpuscular Volume 91 fL (80-97); Mean Platelet Volume 9.2 fL (7.4-10.4); Platelet Count 274 10^3/uL (150-450); Red Blood Count 5.13 10^6 /uL (3.70-4.87); Red Cell Distribution Width 13 % (10-15); White Blood Count 8.2 10^3/uL (3.5-10.8)
[2022-02-09 16:11] LABS: Urine Appearance Clear; Urine Bilirubin Negative (Negative); Urine Blood 1+ (Negative); Urine Color Yellow; Urine Glucose Negative (Negative); Urine Ketones Negative (Negative); Urine Nitrite Negative (Negative); Urine Protein Negative (Negative); Urine Specific Gravity 1.009 (1.002-1.030); Urine Urobilinogen Negative (Negative)
[2022-02-09 16:15] LABS: Urine Bacteria Absent (Absent); Urine Red Blood Cell Trace(0-2/hpf) (Absent); Urine Squamous Epithelial Cell Present (Absent); Urine White Blood Cell Trace(0-5/hpf) (Absent)
[2022-02-09 16:44] LABS: ALT 12 U/L (7-52); AST 16 U/L (13-39); Albumin 3.7 g/dL (3.2-5.2); Albumin/Globulin Ratio 1.4 (1-3); Alkaline Phosphatase 137 U/L (35-149); Anion Gap 8 mmol/L (2-11); Blood Urea Nitrogen 7 mg/dL (6-24); C Reactive Protein 17.77 mg/L (<8.01); CO2 Carbon Dioxide 35 mmol/L (22-32); Calcium 9.5 mg/dL (8.6-10.3); Chloride 96 mmol/L (101-111); Globulin 2.6 g/dL (2-4); Glucose 89 mg/dL (70-100); Lipase 10 U/L (11.0-82.0); Potassium 2.9 mmol/L (3.5-5.0); Sodium 139 mmol/L (135-145); Total Protein 6.3 g/dL (6.4-8.9)
[2022-02-09 16:46] LABS: HCG Pregnancy < 0.60 mIU/mL
[2022-02-09] MEDS ORDERED: Iodixanol (CONTRAST) 320 MG/ML 100 ML SDV IV ONE (18:00)
[2022-02-09] MEDS ORDERED: Metoclopramide 5 MG/ML VIAL (10 mg) IV ONE (18:52)
[2022-02-09] MEDS: Thiamine 100 MG/ML 2 ml VIAL 100 MG, Folic Acid IV 1 MG, Multiple Vitamin IV ADULT 10 M... IV ONE ×2 (20:20→21:49)
[2022-02-09] MEDS ORDERED: Pantoprazole VIAL 40 MG VIAL IV ONE (22:27)
[2022-02-09] MEDS ORDERED: Lactated Ringers 1000 ml BAG 1,000 ML IV ONE (23:37)
[2022-02-10 00:05] LABS: Magnesium 1.6 mg/dL (1.9-2.7)
[2022-02-10] MEDS ORDERED: Magnesium Sulf 4 GM/100 ML IV 4,000 MG/100 ML BAG IVPB ONE (00:22)
[2022-02-10] MEDS: Sucralfate 1 gm SUSP 1 GM/10 ML UDC PO SCH ×5 (00:58→20:42)
[2022-02-10] MEDS: Ondansetron 4 mg VIAL 2 MG/ML 2 ml VIAL IV PRN ×3 (01:05→20:27)
[2022-02-10] MEDS: KCL 20 MEQ/100 ML IVPREMIX 20 MEQ/100 ML BAG IV SCH ×4 (01:20→14:15)
[2022-02-10] MEDS: Nicotine PATCH 14 MG/24 HR PATCH TRANSDERM SCH (04:39)
[2022-02-10 05:46] LABS: ABS Basophils 0.1 10^3/ul (0-0.2); ABS Eosinophils 0.2 10^3/ul (0-0.6); ABS Lymphocytes 2.3 10^3/ul (1.0-4.8); ABS Monocytes 0.6 10^3/ul (0-0.8); ABS Neutrophils 3.5 10^3/ul (1.5-7.7); Eosinophil % 3.6 %; Hematocrit 44 % (35-47); Hemoglobin 14.8 g/dL (12.0-16.0); Lymphocyte % 34.5 %; Mean Corpuscular HGB Conc 34 g/dL (31-36); Mean Corpuscular Hemoglobin 31 pg (27-31); Mean Corpuscular Volume 91 fL (80-97); Mean Platelet Volume 9.1 fL (7.4-10.4); Nucleated Red Blood Cells % 0.1; Platelet Count 236 10^3/uL (150-450); Red Blood Count 4.79 10^6 /uL (3.70-4.87); Red Cell Distribution Width 13 % (10-15); White Blood Count 6.7 10^3/uL (3.5-10.8)
[2022-02-10 06:11] LABS: Blood Urea Nitrogen 7 mg/dL (6-24); CO2 Carbon Dioxide 29 mmol/L (22-32); Calcium 8.7 mg/dL (8.6-10.3); Chloride 101 mmol/L (101-111); Glucose 83 mg/dL (70-100); Magnesium 1.6 mg/dL (1.9-2.7); Sodium 140 mmol/L (135-145); eGFR CKD-EPI 78.7 (>60)
[2022-02-10 06:17] LABS: Anion Gap 10 mmol/L (2-11)
[2022-02-10] MEDS: Pantoprazole VIAL 40 MG VIAL IV SCH ×2 (08:13→20:38)
[2022-02-10] MEDS ORDERED: Buprenorp/Nalox 8-2 MG FILM SL FILM SCH (09:00)
[2022-02-10] MEDS ORDERED: Magnesium Sulfate 2 gm BAG 2 GM/50 ML BAG IVPB ONE (09:09)
[2022-02-10] MEDS: NORETHINDRONE 0.35 MG PO SCH (09:21)
[2022-02-10] MEDS: fentaNYL 100 mcg/2 ml 50 MCG/ML VIAL IV SLOW PU PRN ×2 (10:00→16:51)
[2022-02-10] MEDS: Metoclopramide 5 MG/ML VIAL (10 mg) IV SLOW PU PRN ×2 (10:01→16:48)
[2022-02-10] MEDS: NS 0.9% w/ 20 Meq KCL 1000 ml 1,000 ML IV SCH (19:08)
[2022-02-11] MEDS: Metoclopramide 5 MG/ML VIAL (10 mg) IV SLOW PU PRN ×2 (04:28→13:02)
[2022-02-11] MEDS: fentaNYL 100 mcg/2 ml 50 MCG/ML VIAL IV SLOW PU PRN ×3 (05:34→19:29)
[2022-02-11] MEDS: Nicotine PATCH 14 MG/24 HR PATCH TRANSDERM SCH (08:00)
[2022-02-11] MEDS: Ondansetron 4 mg VIAL 2 MG/ML 2 ml VIAL IV PRN ×2 (08:00→17:18)
[2022-02-11] MEDS: NS 0.9% w/ 20 Meq KCL 1000 ml 1,000 ML IV SCH ×2 (08:18→22:48)
[2022-02-11] MEDS: Pantoprazole VIAL 40 MG VIAL IV SCH ×2 (08:20→19:59)
[2022-02-11] MEDS: Sucralfate 1 gm SUSP 1 GM/10 ML UDC PO SCH ×4 (08:20→20:04)
[2022-02-11] MEDS: NORETHINDRONE 0.35 MG PO SCH (08:21)
[2022-02-11 09:25] LABS: Magnesium 2.1 mg/dL (1.9-2.7); Potassium 3.3 mmol/L (3.5-5.0); eGFR CKD-EPI 102.3 (>60)
[2022-02-11] MEDS ORDERED: KCL 20 MEQ/100 ML IVPREMIX 20 MEQ/100 ML BAG IV ONE (18:11)
[2022-02-12] MEDS: fentaNYL 100 mcg/2 ml 50 MCG/ML VIAL IV SLOW PU PRN ×2 (00:39→12:49)
[2022-02-12] MEDS: Metoclopramide 5 MG/ML VIAL (10 mg) IV SLOW PU PRN ×3 (00:41→19:07)
[2022-02-12 07:15] LABS: Calcium 8.9 mg/dL (8.6-10.3); Potassium 3.2 mmol/L (3.5-5.0); eGFR CKD-EPI 83.1 (>60)
[2022-02-12] MEDS: NORETHINDRONE 0.35 MG PO SCH (09:36)
[2022-02-12] MEDS: Sucralfate 1 gm SUSP 1 GM/10 ML UDC PO SCH ×4 (10:45→21:08)
[2022-02-12] MEDS: Pantoprazole VIAL 40 MG VIAL IV SCH ×2 (10:46→21:11)
[2022-02-12] MEDS: Nicotine PATCH 14 MG/24 HR PATCH TRANSDERM SCH (12:45)
[2022-02-12] MEDS: Ondansetron 4 mg VIAL 2 MG/ML 2 ml VIAL IV PRN (12:47)
[2022-02-12] MEDS: NS 0.9% w/ 20 Meq KCL 1000 ml 1,000 ML IV SCH (14:28)
[2022-02-12] MEDS: KCL 20 MEQ/100 ML IVPREMIX 20 MEQ/100 ML BAG IV SCH ×2 (15:25→19:19)
[2022-02-13] MEDS: NS 0.9% w/ 20 Meq KCL 1000 ml 1,000 ML IV SCH (05:55)
[2022-02-13] MEDS: fentaNYL 100 mcg/2 ml 50 MCG/ML VIAL IV SLOW PU PRN (05:58)
[2022-02-13] MEDS: Metoclopramide 5 MG/ML VIAL (10 mg) IV SLOW PU PRN (05:59)
[2022-02-13 07:19] LABS: CO2 Carbon Dioxide 23 mmol/L (22-32); Calcium 8.7 mg/dL (8.6-10.3); Chloride 109 mmol/L (101-111); Sodium 142 mmol/L (135-145)
[2022-02-13 07:24] LABS: Blood Urea Nitrogen 5 mg/dL (6-24); Glucose 109 mg/dL (70-100); eGFR CKD-EPI 91.7 (>60)
[2022-02-13 07:25] LABS: Anion Gap 10 mmol/L (2-11)
[2022-02-13] MEDS ORDERED: Metoclopramide LIQUID 1 mg/ml 10 ml ORAL.SOLN (10 mg) PO PRN (09:20)
[2022-02-13] MEDS: Nicotine PATCH 14 MG/24 HR PATCH TRANSDERM SCH (09:58)
[2022-02-13] MEDS: NORETHINDRONE 0.35 MG PO SCH (09:59)
[2022-02-13] MEDS: Pantoprazole VIAL 40 MG VIAL IV SCH ×2 (10:00→21:11)
[2022-02-13] MEDS: Buprenorp/Nalox 4-1 MG FILM SL FILM SCH ×4 (10:00→21:12)
[2022-02-13] MEDS: Sucralfate 1 gm SUSP 1 GM/10 ML UDC PO SCH ×4 (10:00→21:09)
[2022-02-13 12:00] LABS: ABS Basophils 0.1 10^3/ul (0-0.2); ABS Eosinophils 0.3 10^3/ul (0-0.6); ABS Lymphocytes 2.2 10^3/ul (1.0-4.8); ABS Monocytes 0.5 10^3/ul (0-0.8); ABS Neutrophils 3.8 10^3/ul (1.5-7.7); Eosinophil % 4.2 %; Hematocrit 46 % (35-47); Hemoglobin 15.1 g/dL (12.0-16.0); Lymphocyte % 31.7 %; Mean Corpuscular HGB Conc 33 g/dL (31-36); Mean Corpuscular Hemoglobin 31 pg (27-31); Mean Corpuscular Volume 93 fL (80-97); Mean Platelet Volume 9.4 fL (7.4-10.4); Platelet Count 223 10^3/uL (150-450); Red Blood Count 4.89 10^6 /uL (3.70-4.87); Red Cell Distribution Width 14 % (10-15); White Blood Count 6.9 10^3/uL (3.5-10.8)
[2022-02-14] MEDS: Nicotine PATCH 14 MG/24 HR PATCH TRANSDERM SCH (08:49)
[2022-02-14] MEDS: Pantoprazole VIAL 40 MG VIAL IV SCH (08:49)
[2022-02-14] MEDS: NORETHINDRONE 0.35 MG PO SCH (08:50)
[2022-02-14] MEDS: Sucralfate 1 gm SUSP 1 GM/10 ML UDC PO SCH ×2 (08:50→13:28)
[2022-02-14] MEDS ORDERED: Buprenorp/Nalox 8-2 MG FILM SL FILM SCH (09:00)
[2022-02-14 09:26] LABS: CO2 Carbon Dioxide 23 mmol/L (22-32); Calcium 8.9 mg/dL (8.6-10.3); Chloride 106 mmol/L (101-111); Sodium 139 mmol/L (135-145)
[2022-02-14 09:29] LABS: Anion Gap 10 mmol/L (2-11)
[2022-02-14 09:31] LABS: Blood Urea Nitrogen 4 mg/dL (6-24); Glucose 112 mg/dL (70-100); eGFR CKD-EPI 97.5 (>60)
[2022-02-14 12:02] VITALS: BP 118/80
[2022-02-14 12:51] LABS: Magnesium 1.6 mg/dL (1.9-2.7); Potassium Redraw 3.5 mmol/L (3.5-5.0)
== END 2022-02-14 14:10 | disposition home or self-care (01) | DRG 392 ==
LOC: EDHOLD 12:14 → ED 12:14 → SUATTDRO 23:31 → SSU 02-10 15:07 → SUATTDRO 02-10 16:00
PROVIDERS: ADMIT Internal Medicine; ATTEND Internal Medicine

== ENCOUNTER 2022-03-27 19:25 | Inpatient (IN) ==
[2022-03-27] MEDS ORDERED: Thiamine 100 MG/ML 2 ml VIAL 100 MG, Folic Acid IV 1 MG, Multiple Vitamin IV ADULT 10 M... IV ONE (21:00)
[2022-03-27 21:42] LABS: Hematocrit 39 % (35-47); Hemoglobin 13.1 g/dL (12.0-16.0); Mean Corpuscular HGB Conc 34 g/dL (31-36); Mean Corpuscular Hemoglobin 30 pg (27-31); Mean Corpuscular Volume 88 fL (80-97); Mean Platelet Volume 8.1 fL (7.4-10.4); Platelet Count 576 10^3/uL (150-450); Red Blood Count 4.46 10^6 /uL (3.70-4.87); Red Cell Distribution Width 14 % (10-15); White Blood Count 26.1 10^3/uL (3.5-10.8)
[2022-03-27 21:43] LABS: ABS Basophils 0.3 10^3/ul (0-0.2); ABS Eosinophils 0.1 10^3/ul (0-0.6); ABS Lymphocytes 3.5 10^3/ul (1.0-4.8); ABS Monocytes 1.8 10^3/ul (0-0.8); ABS Neutrophils 20.4 10^3/ul (1.5-7.7); Eosinophil % 0.3 %; Lymphocyte % 13.5 %; Nucleated Red Blood Cells % 0.1
[2022-03-27 21:47] LABS: Urine Appearance Clear; Urine Bilirubin Negative (Negative); Urine Blood 1+ (Negative); Urine Color Straw; Urine Glucose Negative (Negative); Urine Ketones Negative (Negative); Urine Nitrite Negative (Negative); Urine Protein Negative (Negative); Urine Specific Gravity 1.003 (1.002-1.030); Urine Urobilinogen Negative (Negative)
[2022-03-27 22:00] LABS: Urine Bacteria 1+ (Absent); Urine Red Blood Cell Trace(0-2/hpf) (Absent); Urine Squamous Epithelial Cell Present (Absent); Urine White Blood Cell Trace(0-5/hpf) (Absent)
[2022-03-27 22:06] LABS: Urine Benzodiazepine Screen None Detected (None Detect); Urine Cannabinoids Screen Presumptive Positive (None Detect); Urine Opiates Screen None Detected (None Detect)
[2022-03-27 22:09] LABS: ALT 8 U/L (7-52); AST 13 U/L (13-39); Albumin 3.3 g/dL (3.2-5.2); Albumin/Globulin Ratio 0.9 (1-3); Alkaline Phosphatase 178 U/L (35-149); Anion Gap 15 mmol/L (2-11); Blood Urea Nitrogen 21 mg/dL (6-24); CO2 Carbon Dioxide 32 mmol/L (22-32); Chloride 82 mmol/L (101-111); Globulin 3.5 g/dL (2-4); Glucose 103 mg/dL (70-100); Magnesium 1.4 mg/dL (1.9-2.7); Potassium 2.8 mmol/L (3.5-5.0); Sodium 129 mmol/L (135-145); Total Protein 6.8 g/dL (6.4-8.9); eGFR CKD-EPI 47.7 (>60)
[2022-03-27] MEDS ORDERED: Potassium Chlor 20 meq TAB.ER PO ONE (22:11)
[2022-03-27] MEDS ORDERED: Magnesium Sulfate IV 1GM/100ML 1 GM/100 ML BAG IV ONE (22:11)
[2022-03-27] MEDS ORDERED: KCL 20 MEQ/100 ML IVPREMIX 20 MEQ/100 ML BAG IV ONE (22:13)
[2022-03-27 22:16] LABS: HCG Pregnancy < 0.60 mIU/mL
[2022-03-27 22:17] LABS: C Reactive Protein 225.23 mg/L (<8.01)
[2022-03-27] MEDS ORDERED: Iodixanol (CONTRAST) 320 MG/ML 100 ML SDV IV ONE (22:22)
[2022-03-28] MEDS ORDERED: Piperacillin/Tazobac ADVAN 3.375 GM in NS 0.9% 100 ml BAG 100 ML IV ONE (00:15)
[2022-03-28] MEDS ORDERED: NS 0.9% 1000 ml BAG 1,000 ML IV ONE (00:17)
[2022-03-28] MEDS ORDERED: Ondansetron 4 mg VIAL 2 MG/ML 2 ml VIAL IV PRN (00:18)
[2022-03-28] MEDS: Enoxaparin 40 MG/0.4 ML SYR SUBCUT SCH ×2 (00:36→22:37)
[2022-03-28] MEDS ORDERED: Albuterol HFA INHALER 8 gm MDI INH PRN (00:47)
[2022-03-28] MEDS: Nicotine PATCH 14 MG/24 HR PATCH TRANSDERM SCH ×2 (01:21→08:43)
[2022-03-28] MEDS ORDERED: Zosyn per Pharmacy NOTE FOLLOW UP SCH (02:00)
[2022-03-28] MEDS: ZOSYN 3.375 GM Q8H per EXTENDED INFUSION IV SCH ×3 (04:15→22:26)
[2022-03-28] MEDS: Buprenorp/Nalox 8-2 MG FILM SL FILM SCH (08:42)
[2022-03-28] MEDS ORDERED: Nicotine PATCH 14 MG/24 HR PATCH TRANSDERM SCH (09:00)
[2022-03-28] MEDS ORDERED: Mometasone 220 MCG MDI INH PRN (09:37)
[2022-03-28 11:42] LABS: Hematocrit 35 % (35-47); Hemoglobin 11.8 g/dL (12.0-16.0); Mean Corpuscular HGB Conc 34 g/dL (31-36); Mean Corpuscular Hemoglobin 30 pg (27-31); Mean Corpuscular Volume 88 fL (80-97); Mean Platelet Volume 7.8 fL (7.4-10.4); Platelet Count 482 10^3/uL (150-450); Red Blood Count 3.97 10^6 /uL (3.70-4.87); Red Cell Distribution Width 14 % (10-15); White Blood Count 16.3 10^3/uL (3.5-10.8)
[2022-03-28 12:15] LABS: Calcium 8.5 mg/dL (8.6-10.3); Magnesium 1.9 mg/dL (1.9-2.7); Potassium 3.1 mmol/L (3.5-5.0); eGFR CKD-EPI 77.2 (>60)
[2022-03-28 12:19] LABS: ABS Basophils 0.1 10^3/ul (0-0.2); ABS Eosinophils 0.2 10^3/ul (0-0.6); ABS Lymphocytes 2.6 10^3/ul (1.0-4.8); ABS Monocytes 1.6 10^3/ul (0-0.8); ABS Neutrophils 11.8 10^3/ul (1.5-7.7); Eosinophil % 1.1 %; Lymphocyte % 16.1 %
[2022-03-28] MEDS ORDERED: Magnesium Sulfate 2 gm BAG 2 GM/50 ML BAG IVPB ONE (15:21)
[2022-03-28] MEDS: guaiFENesin 100 mg/5 ml LIQ unit dose cup PO PRN (22:31)
[2022-03-28] MEDS: Potassium Chlor 20 meq TAB.ER PO SCH (22:35)
[2022-03-29] MEDS: ZOSYN 3.375 GM Q8H per EXTENDED INFUSION IV SCH ×3 (04:36→23:44)
[2022-03-29 06:54] LABS: ABS Eosinophils 0.3 10^3/ul (0-0.6); ABS Lymphocytes 3.6 10^3/ul (1.0-4.8); ABS Neutrophils 6.2 10^3/ul (1.5-7.7); Eosinophil % 2.9 %; Hematocrit 35 % (35-47); Hemoglobin 11.9 g/dL (12.0-16.0); Lymphocyte % 32.3 %; Mean Corpuscular HGB Conc 34 g/dL (31-36); Mean Corpuscular Hemoglobin 31 pg (27-31); Mean Corpuscular Volume 90 fL (80-97); Nucleated Red Blood Cells % 0.2; Platelet Count 455 10^3/uL (150-450); Red Blood Count 3.91 10^6 /uL (3.70-4.87); Red Cell Distribution Width 14 % (10-15); White Blood Count 11.2 10^3/uL (3.5-10.8)
[2022-03-29 07:16] LABS: Calcium 8.3 mg/dL (8.6-10.3); Magnesium 2.2 mg/dL (1.9-2.7); Phosphorus 2.4 mg/dL (2.5-5.0); Potassium 3.4 mmol/L (3.5-5.0); eGFR CKD-EPI 98.4 (>60)
[2022-03-29] MEDS ORDERED: Potassium EFFERVES 25 meq TAB PO ONE (08:10)
[2022-03-29] MEDS: guaiFENesin 100 mg/5 ml LIQ unit dose cup PO PRN ×2 (08:15→14:10)
[2022-03-29] MEDS: Potassium Chlor 20 meq TAB.ER PO SCH ×2 (08:16→21:53)
[2022-03-29] MEDS: Buprenorp/Nalox 8-2 MG FILM SL FILM SCH (08:17)
[2022-03-29] MEDS: Nicotine PATCH 14 MG/24 HR PATCH TRANSDERM SCH (08:17)
[2022-03-29] MEDS ORDERED: Potassium Phosphate IV 10 MMOLE in NS 0.9% 250 ml 250 ML IVPB ONE (08:30)
[2022-03-29] MEDS: Enoxaparin 40 MG/0.4 ML SYR SUBCUT SCH (21:51)
[2022-03-30] MEDS: Nicotine PATCH 21 MG/24 HR PATCH TRANSDERM SCH ×2 (00:24→22:03)
[2022-03-30] MEDS: ZOSYN 3.375 GM Q8H per EXTENDED INFUSION IV SCH ×3 (04:12→22:07)
[2022-03-30 06:20] LABS: ABS Basophils 0.2 10^3/ul (0-0.2); ABS Eosinophils 0.3 10^3/ul (0-0.6); ABS Lymphocytes 2.9 10^3/ul (1.0-4.8); ABS Monocytes 0.9 10^3/ul (0-0.8); ABS Neutrophils 8.6 10^3/ul (1.5-7.7); Eosinophil % 2.2 %; Hematocrit 38 % (35-47); Hemoglobin 12.4 g/dL (12.0-16.0); Lymphocyte % 22.3 %; Mean Corpuscular HGB Conc 33 g/dL (31-36); Mean Corpuscular Hemoglobin 30 pg (27-31); Mean Corpuscular Volume 90 fL (80-97); Mean Platelet Volume 7.7 fL (7.4-10.4); Platelet Count 484 10^3/uL (150-450); Red Blood Count 4.19 10^6 /uL (3.70-4.87); Red Cell Distribution Width 14 % (10-15); White Blood Count 12.8 10^3/uL (3.5-10.8)
[2022-03-30 06:26] LABS: INR 1.16 (0.88-1.18)
[2022-03-30 06:49] LABS: Calcium 8.5 mg/dL (8.6-10.3); Potassium 3.7 mmol/L (3.5-5.0)
[2022-03-30 06:55] LABS: eGFR CKD-EPI 109.8 (>60)
[2022-03-30] MEDS: Buprenorp/Nalox 8-2 MG FILM SL FILM SCH (11:15)
[2022-03-30] MEDS: Potassium Chlor 20 meq TAB.ER PO SCH ×2 (11:19→22:01)
[2022-03-30] MEDS: guaiFENesin 100 mg/5 ml LIQ unit dose cup PO PRN (16:52)
[2022-03-30] MEDS ORDERED: Lidocaine 1% MPF 5 ML VIAL INJ ONE (17:42)
[2022-03-30] MEDS: Enoxaparin 40 MG/0.4 ML SYR SUBCUT SCH (22:02)
[2022-03-31] MEDS: ZOSYN 3.375 GM Q8H per EXTENDED INFUSION IV SCH ×3 (04:46→22:06)
[2022-03-31] MEDS: guaiFENesin 100 mg/5 ml LIQ unit dose cup PO PRN ×2 (07:50→16:02)
[2022-03-31] MEDS: Buprenorp/Nalox 8-2 MG FILM SL FILM SCH (07:51)
[2022-03-31] MEDS: Potassium Chlor 20 meq TAB.ER PO SCH ×2 (07:52→22:50)
[2022-03-31] MEDS ORDERED: Senna TAB 8.6 mg TAB PO PRN (08:31)
[2022-03-31 08:46] LABS: ABS Basophils 0.1 10^3/ul (0-0.2); ABS Eosinophils 0.2 10^3/ul (0-0.6); ABS Lymphocytes 2.6 10^3/ul (1.0-4.8); ABS Monocytes 0.9 10^3/ul (0-0.8); ABS Neutrophils 10.9 10^3/ul (1.5-7.7); Eosinophil % 1.6 %; Hematocrit 37 % (35-47); Hemoglobin 12.1 g/dL (12.0-16.0); Lymphocyte % 17.5 %; Mean Corpuscular HGB Conc 33 g/dL (31-36); Mean Corpuscular Hemoglobin 30 pg (27-31); Mean Corpuscular Volume 90 fL (80-97); Mean Platelet Volume 7.8 fL (7.4-10.4); Platelet Count 435 10^3/uL (150-450); Red Blood Count 4.09 10^6 /uL (3.70-4.87); Red Cell Distribution Width 14 % (10-15); White Blood Count 14.7 10^3/uL (3.5-10.8)
[2022-03-31 09:10] LABS: Calcium 8.3 mg/dL (8.6-10.3); Potassium 4.5 mmol/L (3.5-5.0)
[2022-03-31 09:16] LABS: eGFR CKD-EPI 111.8 (>60)
[2022-03-31] MEDS: Polyethylene Glycol 3350 17 GM PACKET PO SCH (10:06)
[2022-03-31] MEDS: Senna TAB 8.6 mg TAB PO SCH (10:06)
[2022-03-31] MEDS: Nicotine PATCH 21 MG/24 HR PATCH TRANSDERM SCH (22:11)
[2022-03-31] MEDS: Enoxaparin 40 MG/0.4 ML SYR SUBCUT SCH (22:15)
[2022-04-01] MEDS: ZOSYN 3.375 GM Q8H per EXTENDED INFUSION IV SCH ×2 (03:33→12:16)
[2022-04-01 06:11] LABS: ABS Basophils 0.2 10^3/ul (0-0.2); ABS Eosinophils 0.3 10^3/ul (0-0.6); ABS Monocytes 0.8 10^3/ul (0-0.8); Hematocrit 34 % (35-47); Hemoglobin 11.3 g/dL (12.0-16.0); Lymphocyte % 32.5 %; Mean Corpuscular HGB Conc 34 g/dL (31-36); Mean Corpuscular Hemoglobin 31 pg (27-31); Mean Corpuscular Volume 91 fL (80-97); Mean Platelet Volume 7.6 fL (7.4-10.4); Platelet Count 382 10^3/uL (150-450); Red Cell Distribution Width 14 % (10-15); White Blood Count 9.1 10^3/uL (3.5-10.8)
[2022-04-01 06:50] LABS: Calcium 8.2 mg/dL (8.6-10.3); Potassium 4.5 mmol/L (3.5-5.0)
[2022-04-01] MEDS: Senna TAB 8.6 mg TAB PO SCH (08:48)
[2022-04-01] MEDS: Potassium Chlor 20 meq TAB.ER PO SCH (08:49)
[2022-04-01] MEDS: Buprenorp/Nalox 8-2 MG FILM SL FILM SCH (08:49)
[2022-04-01] MEDS: Polyethylene Glycol 3350 17 GM PACKET PO SCH (08:50)
[2022-04-01] MEDS: guaiFENesin 100 mg/5 ml LIQ unit dose cup PO PRN (08:50)
[2022-04-01] MEDS: Nicotine GUM 2MG FRUIT FLAVOR PO PRN ×4 (08:53→17:15)
[2022-04-01 12:19] LABS: C Reactive Protein 38.83 mg/L (<8.01)
[2022-04-01 15:25] VITALS: BP 122/63
== END 2022-04-01 19:49 | disposition home or self-care (01) | DRG 871 ==
LOC: ED 19:25 → SUATTDRO 03-28 00:18 → EDHOLD 03-28 00:18 → MEDTELE 03-28 04:34
PROVIDERS: ADMIT Student in an Organized Health Care Education/Training Program; ATTEND Internal Medicine

== ENCOUNTER 2023-07-10 16:50 | Inpatient (IN) ==
[2023-07-10 18:24] LABS: ABS Basophils 0.2 10^3/uL (0.0-0.1); ABS Eosinophils 0.1 10^3/uL (0.0-0.5); ABS Lymphocytes 1.5 10^3/uL (1.0-4.8); ABS Monocytes 0.4 10^3/uL (0.0-0.9); ABS Neutrophils 4.6 10^3/uL (1.5-7.6); ABS Nucleated RBC 0.02 10^3/ul; Eosinophil % 0.8 %; Hemoglobin 15.2 g/dL (11.5-14.3); Lymphocyte % 22.9 %; Mean Corpuscular Hemoglobin 32.9 pg (27-33); Mean Corpuscular Hgb Conc 34.6 g/dL (31-36); Mean Corpuscular Volume 95.1 fL (80-97); Mean Platelet Volume 6.8 fL (7.5-11.2); Nucleated Red Blood Cells % 0.2 %/100WBC (0.0-0.8); Platelet Count 336 10^3/uL (150-450); Red Blood Count 4.63 10^6/uL (3.63-4.92); White Blood Count 6.8 10^3/uL (3.8-11.8)
[2023-07-10 18:57] LABS: ALT 27 U/L (7-52); AST 44 U/L (13-39); Acetaminophen < 15 mcg/mL; Albumin 4.2 g/dL (3.2-5.2); Albumin/Globulin Ratio 1.7 (1-3); Alcohol, S 168 mg/dL (<13); Alkaline Phosphatase 145 U/L (35-149); Anion Gap 17 mmol/L (2-16); Blood Urea Nitrogen 5 mg/dL (6-24); CO2 Carbon Dioxide 24 mmol/L (22-32); Calcium 9.2 mg/dL (8.6-10.3); Chloride 98 mmol/L (101-111); Creatinine, Serum 0.58 mg/dL (0.51-0.95); Globulin 2.5 g/dL (2-4); Glucose 78 mg/dL (70-100); Potassium 3.4 mmol/L (3.5-5.0); Salicylate < 2.50 mg/dL (<30); Sodium 139 mmol/L (135-145); Total Bilirubin 0.6 mg/dL (0.2-1.0); Total Protein 6.7 g/dL (6.4-8.9)
[2023-07-10 19:04] LABS: HCG Pregnancy < 0.60 mIU/mL
[2023-07-10 19:13] LABS: TSH Ultra Thyroid Stim Horm 2.31 mcIU/mL (0.34-5.60)
[2023-07-10] MEDS ORDERED: Lorazepam PYXIS KEY PRN (20:14)
[2023-07-10] MEDS ORDERED: LORazepam 2 mg VIAL 1 ml IV PUSH ONE (20:14)
[2023-07-10 20:25] LABS: Magnesium 1.5 mg/dL (1.9-2.7)
[2023-07-10] MEDS: Ondansetron 4 mg VIAL 2 MG/ML 2 ml VIAL IV ONE (20:56)
[2023-07-10] MEDS: Famotidine IV 10 MG/ML 2 ml VIAL (20 mg) IV SLOW PU ONE (20:59)
[2023-07-10] MEDS ORDERED: LORazepam 2 MG/ML 1 mL Syringe IM ONE (21:00)
[2023-07-10] MEDS: Acetaminophen IV 1 GM/100ML 1,000 MG/100 ML BAG IV ONE (21:02)
[2023-07-10] MEDS: Thiamine 100 MG/ML 2 ml VIAL 100 MG, Folic Acid IV 1 MG, Multiple Vitamin IV ADULT 10 M... IV ONE (21:06)
[2023-07-10] MEDS: LORazepam 2 MG/ML 1 mL Syringe IV SCH (21:11)
[2023-07-10] MEDS: Nicotine PATCH 14 MG/24 HR PATCH TRANSDERM ONE (21:20)
[2023-07-10] MEDS: Magnesium Sulfate 2 gm BAG 2 GM/50 ML BAG IVPB ONE (21:22)
[2023-07-10] MEDS: Multivitamins/Minerals TAB PO SCH (21:35)
[2023-07-10] MEDS: Potassium Chlor 20 meq TAB.ER PO ONE (21:35)
[2023-07-10] MEDS ORDERED: Labetalol IV 5 MG/ML 20 ml VIAL IV PUSH ONE (22:18)
[2023-07-10] MEDS: Thiamine 100 MG/ML 2 ml VIAL (200 mg) IM ONE (22:37)
[2023-07-10] MEDS ORDERED: Senna TAB 8.6 mg TAB PO PRN (22:44)
[2023-07-10] MEDS ORDERED: Polyethylene Glycol 3350 17 GM PACKET PO PRN (22:44)
[2023-07-10 22:53] LABS: Vitamin B12 186 pg/mL (180-914)
[2023-07-10 22:56] LABS: Vitamin D Total 25(OH) 22.8 ng/mL (20-50)
[2023-07-10 23:53] LABS: Urine Appearance Clear; Urine Bilirubin Negative (Negative); Urine Blood 1+ (Negative); Urine Color Yellow; Urine Glucose Negative (Negative); Urine Ketones 1+ (Negative); Urine Nitrite Negative (Negative); Urine Protein Negative (Negative); Urine Specific Gravity 1.017 (1.002-1.030); Urine Urobilinogen Negative (Negative)
[2023-07-10 23:58] LABS: Urine Benzodiazepine Screen None Detected (None Detect); Urine Cannabinoids Screen None Detected (None Detect); Urine Opiates Screen None Detected (None Detect)
[2023-07-11 00:02] LABS: Urine Bacteria Absent /HPF (Absent); Urine Red Blood Cell 1+(3-5/hpf) /HPF (0-Trace); Urine Squamous Epithelial Cell Present /HPF (Absent); Urine White Blood Cell Trace(0-5/hpf) /HPF (0-Trace)
[2023-07-11] MEDS: NS IV ONE (00:41)
[2023-07-11] MEDS: Thiamine 100 MG/ML 2 ml VIAL (200 mg) IV ONE (00:41)
[2023-07-11] MEDS: MULTIPLE VITAMIN IV ONE (00:41)
[2023-07-11] MEDS: FOLIC ACID IV ONE (00:41)
[2023-07-11] MEDS: Enoxaparin 40 MG/0.4 ML SYR SUBCUT SCH (01:57)
[2023-07-11 06:18] LABS: ABS Eosinophils 0.1 10^3/uL (0.0-0.5); ABS Lymphocytes 1.9 10^3/uL (1.0-4.8); ABS Monocytes 0.8 10^3/uL (0.0-0.9); ABS Neutrophils 2.9 10^3/uL (1.5-7.6); Hematocrit 39.2 % (35-45); Hemoglobin 13.4 g/dL (11.5-14.3); Mean Corpuscular Hemoglobin 32.8 pg (27-33); Mean Corpuscular Hgb Conc 34.3 g/dL (31-36); Mean Corpuscular Volume 95.7 fL (80-97); Mean Platelet Volume 7.3 fL (7.5-11.2); Platelet Count 286 10^3/uL (150-450); Red Cell Distribution Width 13.8 % (12-17); White Blood Count 5.7 10^3/uL (3.8-11.8)
[2023-07-11 06:49] LABS: Albumin 3.7 g/dL (3.2-5.2); Albumin/Globulin Ratio 1.9 (1-3); Calcium 8.8 mg/dL (8.6-10.3); Creatinine, Serum 0.6 mg/dL (0.51-0.95); Potassium 3.7 mmol/L (3.5-5.0); Total Bilirubin 0.9 mg/dL (0.2-1.0); Total Protein 5.7 g/dL (6.4-8.9)
[2023-07-11 08:42] LABS: Magnesium 1.9 mg/dL (1.9-2.7); Phosphorus 3.4 mg/dL (2.5-5.0)
[2023-07-11] MEDS: Buprenorp/Nalox 8-2 MG FILM SL SCH (09:26)
[2023-07-11] MEDS: Ondansetron 4 mg VIAL 2 MG/ML 2 ml VIAL IV PRN (09:30)
[2023-07-11] MEDS: Lactated Ringers 1000 ml BAG 1,000 ML IV SCH (13:51)
[2023-07-11] MEDS: Lidocaine 1% MPF 5 ML VIAL INJ ONE (21:09)
[2023-07-12] MEDS: Al Hydrox/Mg Hydrox/Simet LIQ 30 ML UDC PO ONE (11:20)
[2023-07-12 12:03] LABS: ABS Eosinophils 0.1 10^3/uL (0.0-0.5); ABS Lymphocytes 0.8 10^3/uL (1.0-4.8); ABS Monocytes 0.4 10^3/uL (0.0-0.9); ABS Neutrophils 5.8 10^3/uL (1.5-7.6); Eosinophil % 1.9 %; Hematocrit 42.4 % (35-45); Hemoglobin 14.4 g/dL (11.5-14.3); Lymphocyte % 10.9 %; Mean Corpuscular Hemoglobin 32.7 pg (27-33); Mean Corpuscular Volume 96.2 fL (80-97); Mean Platelet Volume 7.2 fL (7.5-11.2); Nucleated Red Blood Cells % 0.1 %/100WBC (0.0-0.8); Platelet Count 200 10^3/uL (150-450); Red Cell Distribution Width 13.8 % (12-17); White Blood Count 7.2 10^3/uL (3.8-11.8)
[2023-07-12 12:32] LABS: Calcium 9.3 mg/dL (8.6-10.3); Creatinine, Serum 0.63 mg/dL (0.51-0.95); eGFR CKD-EPI 110.7 (>60)
[2023-07-12] MEDS: Nicotine PATCH 21 MG/24 HR PATCH TRANSDERM SCH (22:59)
[2023-07-13 14:19] VITALS: BP 125/79
[2023-07-14 12:48] LABS: Pyridoxal 5-Phosphate (PLP), P 9 mcg/L (5-50)
== END 2023-07-13 15:01 | disposition home or self-care (01) | DRG 897 ==
LOC: EDHOLD 16:50 → ED 16:50 → SUATTDRO 21:02 → MEDTELE 07-12 10:19
PROVIDERS: ADMIT Hospitalist; ATTEND Internal Medicine

== ENCOUNTER 2023-09-18 20:08 | Inpatient (IN) ==
[2023-09-18 21:07] LABS: Hematocrit 44.4 % (35-45); Hemoglobin 15.5 g/dL (11.5-14.3); Mean Corpuscular Hemoglobin 32.4 pg (27-33); Mean Corpuscular Hgb Conc 34.8 g/dL (31-36); Mean Corpuscular Volume 93.1 fL (80-97); Mean Platelet Volume 6.4 fL (7.5-11.2); Platelet Count 384 10^3/uL (150-450); Red Blood Count 4.77 10^6/uL (3.63-4.92); Red Cell Distribution Width 14.1 % (12-17); White Blood Count 4.9 10^3/uL (3.8-11.8)
[2023-09-18 21:30] LABS: ABS Basophils 0.1 10^3/uL (0.0-0.1); ABS Eosinophils 0.2 10^3/uL (0.0-0.5); ABS Lymphocytes 2.2 10^3/uL (1.0-4.8); ABS Monocytes 0.2 10^3/uL (0.0-0.9); ABS Neutrophils 2.2 10^3/uL (1.5-7.6); ABS Nucleated RBC 0.08 10^3/ul; Eosinophil % 3.8 %; Lymphocyte % 45.3 %; Nucleated Red Blood Cells % 1.6 %/100WBC (0.0-0.8); RBC Morphology Normal (Normal)
[2023-09-18 22:05] LABS: ALT 89 U/L (7-52); Acetaminophen < 15 mcg/mL; Albumin 3.8 g/dL (3.2-5.2); Albumin/Globulin Ratio 1.5 (1-3); Alcohol, S 295 mg/dL (<13); Alkaline Phosphatase 151 U/L (35-149); Anion Gap 15 mmol/L (2-16); Blood Urea Nitrogen 5 mg/dL (6-24); CO2 Carbon Dioxide 26 mmol/L (22-32); Calcium 8.9 mg/dL (8.6-10.3); Chloride 98 mmol/L (101-111); Creatinine, Serum 0.53 mg/dL (0.51-0.95); Globulin 2.6 g/dL (2-4); Glucose 85 mg/dL (70-100); HCG Pregnancy < 0.60 mIU/mL; Salicylate < 2.50 mg/dL (<30); Sodium 139 mmol/L (135-145); Total Bilirubin 0.4 mg/dL (0.2-1.0); Total Protein 6.4 g/dL (6.4-8.9); eGFR CKD-EPI 115.4 (>60)
[2023-09-18 22:14] LABS: TSH Ultra Thyroid Stim Horm 3.59 mcIU/mL (0.34-5.60)
[2023-09-18] MEDS: Multivitamins/Minerals TAB PO SCH (22:40)
[2023-09-18] MEDS: Thiamine 100 MG/ML 2 ml VIAL (200 mg) IM ONE (22:41)
[2023-09-18 22:46] LABS: Urine Benzodiazepine Screen None Detected (None Detect); Urine Cannabinoids Screen None Detected (None Detect); Urine Opiates Screen None Detected (None Detect)
[2023-09-19 00:16] LABS: Potassium Redraw 3.1 mmol/L (3.5-5.0)
[2023-09-19] MEDS: Buprenorp/Nalox 8-2 MG FILM SL SCH ×2 (13:10→21:34)
[2023-09-19] MEDS: Nicotine Lozenge mini 2 MG LOZNG.MINI MT PRN (15:20)
[2023-09-20] MEDS: [UNRECOGNIZED DRUG - OTHER] PO SCH (08:16)
[2023-09-20] MEDS: IRON PO SCH (08:16)
[2023-09-20] MEDS: MULTIVITAMIN MIN IRON FA VIT K 18 MG PO SCH (08:16)
[2023-09-20 08:27] LABS: Cholesterol 257 mg/dL; HDL Cholesterol 148.1 mg/dL
[2023-09-20] MEDS: Nicotine PATCH 14 MG/24 HR PATCH TRANSDERM SCH (13:45)
[2023-09-21] MEDS: Nicotine Lozenge mini 4 MG LOZNG.MINI MT PRN (15:50)
[2023-09-21] MEDS: Nicotine PATCH 14 MG/24 HR PATCH TRANSDERM ONE (18:46)
[2023-09-21] MEDS: Al Hydrox/Mg Hydrox/Simet LIQ 30 ML UDC PO PRN (20:25)
[2023-09-24] MEDS: ASA APAP CAFFEINE ES PO PRN (14:52)
[2023-09-26 10:31] VITALS: BP 130/87
[2023-09-26] MEDS: Nicotine GUM 4MG FRUIT FLAVOR PO PRN (14:09)
== END 2023-09-27 07:09 | DRG 897 ==
LOC: ED 20:08 → EDHOLD 09-19 12:12 → BSU 09-19 14:28
PROVIDERS: ADMIT Psychiatry & Neurology Psychiatry; ATTEND Psychiatry & Neurology Psychiatry

== ENCOUNTER 2023-10-23 19:02 | Inpatient (IN) ==
[2023-10-23 19:49] LABS: Urine Appearance Clear; Urine Bilirubin Negative (Negative); Urine Blood Trace (Negative); Urine Color Colorless; Urine Glucose Negative (Negative); Urine Ketones Negative (Negative); Urine Nitrite Negative (Negative); Urine Protein Negative (Negative); Urine Specific Gravity 1.004 (1.002-1.030); Urine Urobilinogen Negative (Negative)
[2023-10-23 20:02] LABS: Hemoglobin 14.8 g/dL (11.5-14.3); Mean Corpuscular Hemoglobin 31.2 pg (27-33); Mean Corpuscular Hgb Conc 33.6 g/dL (31-36); Mean Corpuscular Volume 92.9 fL (80-97); Red Blood Count 4.74 10^6/uL (3.63-4.92); White Blood Count 5.7 10^3/uL (3.8-11.8)
[2023-10-23] MEDS ORDERED: LORazepam 2 MG/ML 1 mL Syringe IV ONE (20:22)
[2023-10-23 20:24] LABS: HCG Pregnancy < 0.60 mIU/mL
[2023-10-23] MEDS ORDERED: Lorazepam PYXIS KEY PRN (20:25)
[2023-10-23 20:33] LABS: TSH Ultra Thyroid Stim Horm 3.25 mcIU/mL (0.34-5.60)
[2023-10-23 20:51] LABS: Platelet Count Platelets clumped. 10^3/uL (150-450)
[2023-10-23 20:52] LABS: ABS Basophils 0.1 10^3/uL (0.0-0.1); ABS Eosinophils 0.1 10^3/uL (0.0-0.5); ABS Lymphocytes 1.7 10^3/uL (1.0-4.8); ABS Monocytes 0.3 10^3/uL (0.0-0.9); ABS Neutrophils 3.6 10^3/uL (1.5-7.6); ABS Nucleated RBC 0.01 10^3/ul; Eosinophil % 0.9 %; Lymphocyte % 29.3 %; Nucleated Red Blood Cells % 0.2 %/100WBC (0.0-0.8)
[2023-10-23] MEDS: LORazepam 2 mg VIAL 1 ml IV PUSH ONE (20:55)
[2023-10-23 21:00] LABS: ALT 19 U/L (7-52); AST 31 U/L (13-39); Acetaminophen < 15 mcg/mL; Albumin/Globulin Ratio 1.5 (1-3); Alcohol, S 177 mg/dL (<13); Alkaline Phosphatase 151 U/L (35-149); Anion Gap 22 mmol/L (2-16); Blood Urea Nitrogen 6 mg/dL (6-24); CO2 Carbon Dioxide 21 mmol/L (22-32); Calcium 9.3 mg/dL (8.6-10.3); Chloride 93 mmol/L (101-111); Creatinine, Serum 0.63 mg/dL (0.51-0.95); Globulin 2.6 g/dL (2-4); Glucose 95 mg/dL (70-100); Lipase 27 U/L (11.0-82.0); Magnesium 1.6 mg/dL (1.9-2.7); Potassium 3.7 mmol/L (3.5-5.0); Sodium 136 mmol/L (135-145); Total Bilirubin 0.5 mg/dL (0.2-1.0); Total Protein 6.6 g/dL (6.4-8.9); eGFR CKD-EPI 110.7 (>60)
[2023-10-23 21:05] LABS: Urine Benzodiazepine Screen None Detected (None Detect); Urine Cannabinoids Screen None Detected (None Detect); Urine Opiates Screen None Detected (None Detect)
[2023-10-23] MEDS: Ondansetron ODT 4 mg TAB 4 MG TAB SL ONE (21:32)
[2023-10-23] MEDS: Lactated Ringers 1000 ml BAG 1,000 ML IV ONE (21:33)
[2023-10-23] MEDS: Ondansetron 4 mg VIAL 2 MG/ML 2 ml VIAL IV ONE (21:33)
[2023-10-23] MEDS: Nicotine PATCH 14 MG/24 HR PATCH TRANSDERM ONE (22:18)
[2023-10-24] MEDS: LORazepam PO 0-6 for WAM protocol PO SCH (01:30)
[2023-10-24] MEDS: Nicotine GUM 2MG FRUIT FLAVOR PO PRN (01:31)
[2023-10-24] MEDS: Vitamin THERAPEUTIC TAB PO SCH (09:57)
[2023-10-24] MEDS: Nicotine Lozenge mini 4 MG LOZNG.MINI MT PRN (16:42)
[2023-10-25] MEDS: Potassium Chlor 20 meq TAB.ER PO SCH (08:47)
[2023-10-26] MEDS: Nicotine GUM 4MG FRUIT FLAVOR PO PRN (11:47)
[2023-10-26] MEDS: Nicotine PATCH 14 MG/24 HR PATCH TRANSDERM SCH (11:47)
[2023-10-26] MEDS: Al Hydrox/Mg Hydrox/Simet LIQ 30 ML UDC PO PRN (19:57)
[2023-10-28 08:53] LABS: Anion Gap 8 mmol/L (2-16); Blood Urea Nitrogen 15 mg/dL (6-24); CO2 Carbon Dioxide 25 mmol/L (22-32); Calcium 8.7 mg/dL (8.6-10.3); Chloride 109 mmol/L (101-111); Cholesterol 179 mg/dL; Creatinine, Serum 0.68 mg/dL (0.51-0.95); Glucose 84 mg/dL (70-100); LDL Cholesterol 68 mg/dL; Magnesium 1.9 mg/dL (1.9-2.7); Sodium 142 mmol/L (135-145); Triglycerides 67 mg/dL; eGFR CKD-EPI 108.7 (>60)
[2023-10-28] MEDS: ASA APAP CAFFEINE ES PO PRN (09:35)
[2023-10-30 08:32] LABS: Hemoglobin 12.6 g/dL (11.5-14.3); Mean Corpuscular Hemoglobin 31.9 pg (27-33); Mean Corpuscular Hgb Conc 33.2 g/dL (31-36); Platelet Count 154 10^3/uL (150-450); Red Blood Count 3.96 10^6/uL (3.63-4.92); Red Cell Distribution Width 14.9 % (12-17); White Blood Count 3.3 10^3/uL (3.8-11.8)
[2023-10-30 08:57] LABS: Potassium, Whole Blood 4.4 mmol/L (3.4-4.5)
[2023-10-31 10:40] VITALS: BP 141/91
== END 2023-10-31 12:00 | disposition home or self-care (01) | DRG 897 ==
LOC: ED 19:02 → EDHOLD 10-24 00:15 → BSU 10-24 00:44
PROVIDERS: ADMIT Psychiatry & Neurology Psychiatry; ATTEND Psychiatry & Neurology Psychiatry

== ENCOUNTER 2023-11-08 21:01 | Inpatient (IN) ==
[2023-11-08] MEDS: Haloperidol 5 mg/ml SDV IV/IM 5 MG/ML AMP IM ONE (21:43)
[2023-11-08] MEDS: LORazepam 2 mg VIAL 1 ml IM ONE (21:43)
[2023-11-09 00:14] LABS: ABS Basophils 0.1 10^3/uL (0.0-0.1); ABS Eosinophils 0.3 10^3/uL (0.0-0.5); ABS Lymphocytes 2.9 10^3/uL (1.0-4.8); ABS Monocytes 0.2 10^3/uL (0.0-0.9); ABS Neutrophils 2.1 10^3/uL (1.5-7.6); ABS Nucleated RBC 0.01 10^3/ul; Eosinophil % 5.3 %; Hematocrit 45.1 % (35-45); Hemoglobin 14.9 g/dL (11.5-14.3); Lymphocyte % 51.5 %; Mean Corpuscular Hemoglobin 31.1 pg (27-33); Mean Corpuscular Hgb Conc 33.1 g/dL (31-36); Mean Corpuscular Volume 93.9 fL (80-97); Nucleated Red Blood Cells % 0.1 %/100WBC (0.0-0.8); Platelet Count Platelets clumped. 10^3/uL (150-450); Red Cell Distribution Width 14.2 % (12-17); White Blood Count 5.7 10^3/uL (3.8-11.8)
[2023-11-09 00:47] LABS: ALT 19 U/L (7-52); Acetaminophen < 15 mcg/mL; Albumin 3.7 g/dL (3.2-5.2); Albumin/Globulin Ratio 1.5 (1-3); Alcohol, S 220 mg/dL (<13); Alkaline Phosphatase 107 U/L (35-149); Anion Gap 7 mmol/L (2-16); Blood Urea Nitrogen 8 mg/dL (6-24); CO2 Carbon Dioxide 26 mmol/L (22-32); Calcium 8.7 mg/dL (8.6-10.3); Chloride 105 mmol/L (101-111); Creatinine, Serum 0.55 mg/dL (0.51-0.95); Globulin 2.4 g/dL (2-4); Glucose 81 mg/dL (70-100); HCG Pregnancy < 0.60 mIU/mL; Salicylate < 2.50 mg/dL (<30); Sodium 138 mmol/L (135-145); TSH Ultra Thyroid Stim Horm 1.66 mcIU/mL (0.34-5.60); Total Bilirubin 0.2 mg/dL (0.2-1.0); Total Protein 6.1 g/dL (6.4-8.9); eGFR CKD-EPI 114.4 (>60)
[2023-11-09 03:35] LABS: Potassium Redraw 4.2 mmol/L (3.5-5.0)
[2023-11-09 06:25] LABS: Urine Appearance Clear; Urine Bilirubin Negative (Negative); Urine Blood Negative (Negative); Urine Color Light-Yellow; Urine Glucose Negative (Negative); Urine Ketones Negative (Negative); Urine Nitrite Negative (Negative); Urine Protein Negative (Negative); Urine Specific Gravity 1.008 (1.002-1.030); Urine Urobilinogen Negative (Negative); Urine pH 5.5 (5.0-8.0)
[2023-11-09] MEDS: Nicotine GUM 4MG FRUIT FLAVOR PO PRN (10:47)
[2023-11-09] MEDS: Nicotine PATCH 14 MG/24 HR PATCH ONE (12:46)
[2023-11-09] MEDS: Nicotine Lozenge mini 4 MG LOZNG.MINI MT PRN (12:48)
[2023-11-09 12:57] LABS: Magnesium 1.7 mg/dL (1.9-2.7)
[2023-11-09] MEDS: Buprenorp/Nalox 8-2 MG FILM SL SCH (13:29)
[2023-11-10] MEDS: Potassium Chlor 20 meq TAB.ER PO SCH (09:13)
[2023-11-10] MEDS: Nicotine PATCH 14 MG/24 HR PATCH TRANSDERM SCH (09:15)
[2023-11-10 10:56] LABS: Urine Benzodiazepine Screen Presumptive Positive (None Detect); Urine Buprenorphine Screen Presumptive Positive (None Detect); Urine Cannabinoids Screen None Detected (None Detect); Urine Fentanyl Screen None Detected (None Detect); Urine Hydrocodone Screen None Detected (None Detect); Urine Opiates Screen None Detected (None Detect)
[2023-11-10] MEDS: ASA APAP CAFFEINE ES PO PRN (22:05)
[2023-11-14] MEDS: cloNIDine 0.3 MG PATCH 0.3 MG/24 HR 7 DAY PATCH TRANSDERM SCH (17:04)
[2023-11-16] MEDS: Al Hydrox/Mg Hydrox/Simet LIQ 30 ML UDC PO PRN (04:04)
[2023-11-21 09:19] VITALS: BP 136/95
== END 2023-11-21 13:06 | disposition home or self-care (01) | DRG 897 ==
LOC: ED 21:01 → EDHOLD 11-09 09:40 → BSU 11-09 10:21
PROVIDERS: ADMIT Psychiatry & Neurology Psychiatry; ATTEND Psychiatry & Neurology Psychiatry